=== PATIENT | male | born 1955 | race Caucasian/White ===

== ENCOUNTER → 2019-12-21 09:56 | Outpatient (BNVA) | payer SELFPAY | PROVIDERS: Visit Provider Internal Medicine Gastroenterology | DX: K50.90 Crohn's disease, unspecified, without complications (principal) | CPT/HCPCS: 99212 ==

== ENCOUNTER → 2020-05-02 10:13 | Outpatient (BNVA) | payer BC, SELFPAY | PROVIDERS: PCP Internal Medicine; Referring Provider Internal Medicine; Visit Provider Internal Medicine Gastroenterology ==

== ENCOUNTER 2020-05-06 11:11 | Outpatient (REF) | payer BC, SELFPAY ==
[2020-05-12 17:02] LABS: Calprotectin, Fecal 48 mcg/g
== END 2020-05-06 11:12 | disposition home or self-care (01) ==
LOC: HO.LNP 11:11
PROVIDERS: Visit Provider Internal Medicine Gastroenterology
DX: K50.90 Crohn's disease, unspecified, without complications (principal)
CPT/HCPCS: 83993

== ENCOUNTER 2020-08-01 08:17 | Outpatient (REF) | payer BC, SELFPAY ==
[2020-08-10 16:46] LABS: Calprotectin, Fecal 132 mcg/g
== END 2020-08-01 08:18 | disposition home or self-care (01) ==
LOC: HO.LNP 08:17
PROVIDERS: PCP Internal Medicine; Referring Provider Internal Medicine; Visit Provider Internal Medicine Gastroenterology
DX: K50.90 Crohn's disease, unspecified, without complications (principal)
CPT/HCPCS: 83993

== ENCOUNTER 2020-08-29 11:12 | Outpatient (REF) | payer BC, SELFPAY ==
[2020-08-29 11:37] LABS: MANUAL DIFF FLAG NO
[2020-08-29 11:41] LABS: Basophils Absolute Auto 0.1 X10*3/uL (0.0-0.2); Basophils Percent Auto 0.8 % (0-2); Eosinophils Absolute Auto 0.3 X10*3/uL (0.0-0.4); Eosinophils Percent Auto 4.6 % (0-4); Hematocrit 41.1 % (42-52); Hemoglobin 13.9 g/dl (14.0-18.0); Imm Gran Abs Auto 0.03 X10*3/uL (0.00-0.03); Imm Gran Pct Auto 0.4 % (0.0-0.4); Lymphocytes Absolute Auto 1.8 X10*3/uL (1.2-4.9); Lymphocytes Percent Auto 25.1 % (20-40); Mean Corpuscular HGB Conc 33.8 g/dl (31.0-36.0); Mean Corpuscular Hemoglobin 29.6 pg (27.0-33.0); Mean Corpuscular Volume 87.4 fL (80-98); Mean Platelet Volume 8.3 fL (9.4-12.4); Monocytes Absolute Auto 0.6 X10*3/uL (0.1-1.2); Neutrophils Absolute Auto 4.4 X10*3/uL (2.0-8.3); Neutrophils Percent Auto 61.1 % (45-73); Platelet Count 207 X10*3/uL (160-400); Red Cell Distribution Width 12.7 % (11.0-16.0); White Blood Count 7.2 X10*3/uL (4.8-10.8)
[2020-08-29 12:04] LABS: C Reactive Protein 0.15 mg/dL (< or = 0.50)
[2020-08-29 12:08] LABS: Alanine Aminotransferase 25 U/L (0-40); Albumin Level 4.2 g/dL (3.5-5.0); Alkaline Phosphatase 87 U/L (39-117); Anion Gap 11 (12-20); Aspartate Amino Transferase 20 U/L (5-37); Bilirubin Total 1.9 mg/dL (0.0-1.0); Blood Urea Nitrogen 13 mg/dL (9-16); Calcium 8.8 mg/dL (8.4-10.2); Carbon Dioxide 25 mmol/L (22-29); Chloride 106 mmol/L (96-108); Estimated Glomerular Filt Rate > 60; Glucose Random 99 mg/dL (60-115); Potassium 3.8 mmol/L (3.3-5.1); Sodium 138 mmol/L (135-145); Total Protein 6.8 g/dL (6.5-8.0)
== END 2020-08-29 11:13 | disposition home or self-care (01) ==
LOC: HO.MDS 11:12
PROVIDERS: PCP Internal Medicine; Visit Provider Internal Medicine Gastroenterology
DX: K50.90 Crohn's disease, unspecified, without complications (principal)
CPT/HCPCS: 36415; 80053; 85025; 86140; 96365; J3358

== ENCOUNTER → 2020-10-22 09:46 | Outpatient (BNVA) | payer BC, SELFPAY | PROVIDERS: PCP Internal Medicine; Visit Provider Internal Medicine Gastroenterology ==

== ENCOUNTER → 2021-02-03 09:10 | Outpatient (BNVA) | payer OTHER, SELFPAY | PROVIDERS: PCP Internal Medicine; Visit Provider Internal Medicine Gastroenterology ==

== ENCOUNTER 2021-02-05 12:57 | Outpatient (REF) | payer OTHER, SELFPAY ==
[2021-02-10 03:27] LABS: Calprotectin, Fecal 114 mcg/g
== END 2021-02-05 12:58 | disposition home or self-care (01) ==
LOC: HO.LNP 12:57
PROVIDERS: Visit Provider Internal Medicine Gastroenterology
DX: K50.90 Crohn's disease, unspecified, without complications (principal)
CPT/HCPCS: 83993

== ENCOUNTER 2021-04-17 09:57 | Outpatient (REF) | payer OTHER, SELFPAY ==
[2021-04-17 11:23] LABS: MANUAL DIFF FLAG NO
[2021-04-17 11:27] LABS: Basophils Absolute Auto 0.1 X10*3/uL (0.0-0.2); Basophils Percent Auto 0.8 % (0-2); Eosinophils Absolute Auto 0.3 X10*3/uL (0.0-0.4); Hematocrit 43.2 % (42.0-52.0); Hemoglobin 14.7 g/dl (14.0-18.0); Imm Gran Abs Auto 0.02 X10*3/uL (0.00-0.03); Imm Gran Pct Auto 0.3 % (0.0-0.4); Lymphocytes Absolute Auto 1.4 X10*3/uL (1.2-4.9); Lymphocytes Percent Auto 21.7 % (20-40); Mean Corpuscular Hemoglobin 29.2 pg (27.0-33.0); Mean Corpuscular Volume 85.9 fL (80.0-98.0); Monocytes Absolute Auto 0.4 X10*3/uL (0.1-1.2); Monocytes Percent Auto 6.7 % (2-11); Neutrophils Absolute Auto 4.3 x10*3/uL (2.0-8.3); Neutrophils Percent Auto 65.5 % (45-73); Platelet Count 216 X10*3/uL (160-400); Red Blood Count 5.03 X10*6/uL (4.60-5.80); Red Cell Distribution Width 12.8 % (11.0-16.0); White Blood Count 6.6 X10*3/uL (4.8-10.8)
[2021-04-17 11:57] LABS: Alanine Aminotransferase 32 U/L (0-40); Albumin Level 4.2 g/dL (3.5-5.0); Alkaline Phosphatase 97 U/L (39-117); Anion Gap 9 (12-20); Aspartate Amino Transferase 24 U/L (5-37); Bilirubin Total 1.9 mg/dL (0.0-1.0); Blood Urea Nitrogen 11 mg/dL (9-16); C Reactive Protein 0.42 mg/dL (< or = 0.50); Calcium 9.6 mg/dL (8.4-10.2); Carbon Dioxide 28 mmol/L (22-29); Chloride 107 mmol/L (96-108); Estimated Glomerular Filt Rate > 60; Glucose Random 98 mg/dL (60-115); Potassium 4.3 mmol/L (3.3-5.1); Sodium 140 mmol/L (135-145); Total Protein 7.5 g/dL (6.5-8.0)
[2021-04-17 12:05] LABS: Erythrocyte Sedimentation Rate 6 MM/HR (0-15)
[2021-04-17 12:15] LABS: Ferritin 59 ng/mL (20-250)
[2021-04-17 12:36] LABS: Folate 10.2 ng/mL (> or = 4.0); Vitamin B12 486 pg/mL (200-900)
[2021-04-22 06:07] LABS: Zinc 72 mcg/dL (60-130)
[2021-04-22 20:46] LABS: Vitamin A 38 mcg/dL (38-98)
[2021-04-24 11:36] LABS: Calprotectin, Fecal 280 mcg/g
== END 2021-04-17 09:58 | disposition home or self-care (01) ==
LOC: HO.LAB 09:57
PROVIDERS: PCP Internal Medicine; Referring Provider Internal Medicine; Visit Provider Internal Medicine Gastroenterology
DX: K50.90 Crohn's disease, unspecified, without complications (principal); K75.81 Nonalcoholic steatohepatitis (NASH)
CPT/HCPCS: 36415; 80053; 82607; 82728; 82746; 83993; 84590; 84630; 85025; 85652; 86140

== ENCOUNTER 2021-12-07 09:46 | Outpatient (REF) | payer OTHER, SELFPAY ==
[2021-12-15 15:08] LABS: Lactoferrin, Fecal, Quant. 6.42 mcg/mL (<7.25)
== END 2021-12-07 09:47 | disposition home or self-care (01) ==
LOC: HO.LNP 09:46
PROVIDERS: Visit Provider Internal Medicine Gastroenterology
DX: K50.90 Crohn's disease, unspecified, without complications (principal)
CPT/HCPCS: 83631

== ENCOUNTER 2022-01-13 17:05 | Emergency (ER) | payer OTHER, SELFPAY | END 2022-01-13 19:38 | disposition left against medical advice (07) | PROVIDERS: Emergency Provider Emergency Medicine | DX: K50.90 Crohn's disease, unspecified, without complications (principal) ==

== ENCOUNTER 2022-02-24 11:23 | Outpatient (REF) | payer OTHER, SELFPAY ==
[2022-02-27 08:28] LABS: TS Negative Control Passed; TS Panel A 0; TS Panel B 0; TS Positive Control Passed; TSpotTB Negative (Negative)
== END 2022-02-24 11:24 | disposition home or self-care (01) ==
LOC: HO.HMGCLDS 11:23
PROVIDERS: PCP Internal Medicine; Visit Provider Internal Medicine Gastroenterology
DX: K50.90 Crohn's disease, unspecified, without complications (principal)
CPT/HCPCS: 36415; 86481

== ENCOUNTER 2022-07-19 09:45 | Outpatient (REF) | payer BC, SELFPAY ==
[2022-07-19 10:37] LABS: MANUAL DIFF FLAG NO
[2022-07-19 10:42] LABS: Basophils Absolute Auto 0.1 X10*3/uL (0.0-0.2); Basophils Percent Auto 0.8 % (0-2); Eosinophils Absolute Auto 0.2 X10*3/uL (0.0-0.4); Eosinophils Percent Auto 2.9 % (0-4); Hemoglobin 14.7 g/dl (14.0-18.0); Imm Gran Abs Auto 0.04 X10*3/uL (0.00-0.03); Imm Gran Pct Auto 0.5 % (0.0-0.4); Lymphocytes Absolute Auto 1.4 X10*3/uL (1.2-4.9); Lymphocytes Percent Auto 18.9 % (20-40); Mean Corpuscular Hemoglobin 29.8 pg (27.0-33.0); Mean Corpuscular Volume 85.2 fL (80.0-98.0); Mean Platelet Volume 8.7 fL (9.4-12.4); Monocytes Absolute Auto 0.6 X10*3/uL (0.1-1.2); Monocytes Percent Auto 7.3 % (2-11); Neutrophils Absolute Auto 5.3 x10*3/uL (2.0-8.3); Neutrophils Percent Auto 69.6 % (45-73); Platelet Count 214 X10*3/uL (160-400); Red Blood Count 4.93 X10*6/uL (4.60-5.80); Red Cell Distribution Width 13.2 % (11.0-16.0); White Blood Count 7.6 X10*3/uL (4.8-10.8)
[2022-07-19 11:43] LABS: Alanine Aminotransferase 34 U/L (0-40); Alkaline Phosphatase 90 U/L (39-117); Anion Gap 11 (12-20); Aspartate Amino Transferase 30 U/L (5-37); Bilirubin Total 3.1 mg/dL (0.0-1.0); Blood Urea Nitrogen 12 mg/dL (9-16); C Reactive Protein 0.41 mg/dL (< or = 0.50); Calcium 9.1 mg/dL (8.4-10.2); Carbon Dioxide 24 mmol/L (22-29); Chloride 106 mmol/L (96-108); Estimated Glomerular Filt Rate > 60; Glucose Random 95 mg/dL (60-115); Sodium 137 mmol/L (135-145); Total Protein 6.8 g/dL (6.5-8.0)
== END 2022-07-19 09:46 | disposition home or self-care (01) ==
LOC: HO.MDS 09:45
PROVIDERS: Visit Provider Internal Medicine Gastroenterology
DX: K50.90 Crohn's disease, unspecified, without complications (principal)
CPT/HCPCS: 36415; 80053; 85025; 86140; J3358

== ENCOUNTER 2022-07-29 10:11 | Outpatient (REF) | payer BC, SELFPAY | END 2022-07-29 10:12 | disposition home or self-care (01) | LOC: HO.MDS 10:11 | PROVIDERS: Visit Provider Internal Medicine Gastroenterology | DX: K50.90 Crohn's disease, unspecified, without complications (principal) | CPT/HCPCS: 96365; J3358 ==

== ENCOUNTER 2022-10-04 09:52 | Outpatient (AMB) | payer BC, SELFPAY ==
--- NOTE | 2022-10-04 09:56 | MHC.OFFVIS ---
Intake Vital Signs 10/04/22 09:58 Height 5 ft 6 in Weight 194 lb 0.108 oz BMI 31.3 BP 114/69 Blood Pressure Location Lt brachial Position Sitting Pulse 78 Intake Visit Reasons: 6 Month FU Intake Note: Bello presents in the office as a 6 month follow up. CC: Little tingling in the legs but he states that he feels pretty good. That is just due to arthritis. Allergies Seasonal Allergies Allergy (Mild, Verified 10/04/22 09:58) runny nose HPI 6 Month FU HPI Details RECAP: ? 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 I also dx him with based on exam findings and XR. ? He did have sx of diarrhea, and rheum started him on humira which worked great ?spine had been getting worse and rheum had talked of stopping or changing humira ? insurance refused leonel eventually got simponi and it helped his joints a lot his rheum has been trying to get stelara but refused by insurance I ordered stelara for him to see if helps joints and abdominal sx ? ? ? Tests; ? EGD/colonoscopy- focal colitis, grade D esophagitis ? MRe 07/2017- normal ? fecal calprotectin- neg. ? repeat fecal calprotectin 10/2018- 168, repeat; 132 (04/2019) ? rechecked 03/2019--136 rechecked 04/2020--fecal raman was normal (had been advised to stop NSAID before then), rept calprotectin: 132 ? ada level-10/2018-8, no ab in blood ? crp 10/2018 neg ? mild bili elevation prob gilberts ? MRe; 10/2018--no inflammation noted in GI tract, no fistula ? VCE: 12/27/18--normal, no erosions, normal stomach and small bowel mucosa calprotectin 280 ----03/2021 fecal lactoferrin from 12/10 was negative ? INTERIM: he is back on sterala after insurance issues no blood in stools no nausea or vomiting appetite is fair no abdominal pain he feesl it is helping his joints a swell EXAM: GENERAL: The patient is well developed and nontoxic. VITAL SIGNS:see workflow HEENT: Nonicteric sclerae, PERRLA, EOMI. Oropharynx clear. Moist mucous membranes. Conjunctivae appear well perfused. No thyroid mass. CHEST: Chest wall is nontender. HEART: Regular rate and rhythm without murmurs. LUNGS: Clear to auscultation bilaterally. ABDOMEN: Soft, positive bowel sounds, nontender, no organomegaly.no flank tenderness SKIN: No rash, no excessive bruising, petechiae, or purpura. NEUROLOGIC: Cranial nerves II-XII intact without motor/sensory deficit. MS:? loss of lumbar lordosis ? 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 Cont with stellara, 2/ egd and colonoscopy for reassessment and surveillance but he wants to hold off till after next visit 3/ reminded on taking MV and Vit D supplement PFSH Surgical History History of esophagogastroduodenoscopy (EGD) Hx of colonoscopy (~2017) Hx of hernia repair Family History Mother Dementia Father Cancer Brother Heart attack Social History Household Members: Spouse Alcohol intake: never Physical Exam Vital Signs: Last Vital Signs Pulse 78 10/04/22 09:58 BP 114/69 10/04/22 09:58 BMI result Body Mass Index 31.3 Assessment & Plan Assessment & Plan (1) Crohn's disease: Code(s): K50.90 - Crohn's disease, unspecified, without complications (2) Ankylosing spondylitis: Code(s): M45.9 - Ankylosing spondylitis of unspecified sites in spine (3) [place] disease: Code(s): 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
[2022-10-04 09:58] VITALS: BP 114/69; PULSE 78; BMI 31.3
== END 2022-10-04 10:36 | disposition home or self-care (01) ==
PROVIDERS: PCP Internal Medicine; Visit Provider Internal Medicine Gastroenterology
DX: K50.90 Crohn's disease, unspecified, without complications (principal); M45.9 Ankylosing spondylitis of unspecified sites in spine; E80.4 Gilbert syndrome
CPT/HCPCS: 99213

== ENCOUNTER → 2022-10-04 09:52 | Outpatient (BNVA) | payer BC, SELFPAY | PROVIDERS: PCP Internal Medicine; Visit Provider Internal Medicine Gastroenterology ==

== ENCOUNTER 2023-06-20 10:43 | Outpatient (AMB) | payer BC, SELFPAY ==
--- NOTE | 2023-06-20 10:52 | MHC.OFFVIS ---
Intake Vital Signs 06/20/23 10:55 Height 5 ft 6 in Weight 196 lb BMI 31.6 BP 121/70 Blood Pressure Location Lt brachial Position Sitting Pulse 69 Intake Visit Reasons: 6 month follow up Intake Note: Bello presents in the office as a 6 month follow up. CC: a month ago he had a week flare up and was out of work for a month. diarrhea, constipation, pains in the stomach. 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 I also dx him with based on exam findings and XR. He did have sx of diarrhea, and rheum started him on humira which worked great spine had been getting worse and rheum had talked of stopping or changing humira insurance refused stelara eventually got simponi and it helped his joints a lot his rheum has been trying to get stelara but refused by insurance I ordered stelara for him to see if helps joints and abdominal sx Tests; EGD/colonoscopy- focal colitis, grade D esophagitis MRe 07/2017- normal fecal calprotectin- neg. repeat fecal calprotectin 10/2018- 168, repeat; 132 (04/2019) rechecked 03/2019--136 rechecked 04/2020--fecal raman was normal (had been advised to stop NSAID before then), rept calprotectin: 132 ada level-10/2018-8, no ab in blood crp 10/2018 neg mild bili elevation prob roger MRe; 10/2018--no inflammation noted in GI tract, no fistula VCE: 12/27/18--normal, no erosions, normal stomach and small bowel mucosa calprotectin 280 ----03/2021 fecal lactoferrin from 12/10 was negative INTERIM: he had an isolated flare in March and also had similar symptoms, lasted 1 week, now normal no abdominal pain now bowel habit normal no blood in stools no nausea or vomiting appetite is fair he is happy with stelara joints are still sore, but not as swollen EXAM: GENERAL: The patient is well developed and nontoxic. VITAL SIGNS:see workflow HEENT: Nonicteric sclerae, PERRLA, EOMI. Oropharynx clear. Moist mucous membranes. Conjunctivae appear well perfused. No thyroid mass. CHEST: Chest wall is nontender. HEART: Regular rate and rhythm without murmurs. LUNGS: Clear to auscultation bilaterally. ABDOMEN: Soft, positive bowel sounds, nontender, no organomegaly.no flank tenderness SKIN: No rash, no excessive bruising, petechiae, or purpura. NEUROLOGIC: Cranial nerves II-XII intact without motor/sensory deficit. MS: loss of lumbar lordosis Assessment & Plan (1) Crohn's disease--on stelara, flare seems to have been viral in nature, resolved 2/ Hx of esophagitis -no sx now PLAN: 1/ Cont with stellara, 2/ egd and colonoscopy for reassessment and surveillance 3/ cont taking MV and Vit D supplement PFSH Surgical History History of esophagogastroduodenoscopy (EGD) Hx of hernia repair Hx of colonoscopy (~2016) Family History Mother Dementia Father Cancer Brother Heart attack Social History Household Members: Spouse Alcohol intake: never Physical Exam Vital Signs: Last Vital Signs Pulse 69 06/20/23 10:55 BP 121/70 06/20/23 10:55 BMI result Body Mass Index 31.6 Assessment & Plan Assessment & Plan (1) Crohn's disease: Code(s): K50.90 - Crohn's disease, unspecified, without complications Plan: PLAN: 1/ Cont with stellara, 2/ egd and colonoscopy for reassessment and surveillance 3/ cont taking MV and Vit D supplement Medications: New sodium,potassium,mag sulfates 17.5-3.13-1.6 gram (Suprep Bowel Prep Kit) DILUTE; drink 1/2 at 6-8 pm and half at 11 PM- 1AM 354 mL 0RF Coding Level of Care Code Est Pt Level 3 (63131) Diagnoses Crohn's disease K50.90
[2023-06-20 10:55] VITALS: BP 121/70; PULSE 69; BMI 31.6
== END 2023-06-20 11:41 | disposition home or self-care (01) ==
PROVIDERS: PCP Internal Medicine; Visit Provider Internal Medicine Gastroenterology
DX: K50.90 Crohn's disease, unspecified, without complications (principal)
CPT/HCPCS: 99213

== ENCOUNTER → 2023-06-20 10:43 | Outpatient (BNVA) | payer BC, SELFPAY | PROVIDERS: PCP Internal Medicine; Visit Provider Internal Medicine Gastroenterology ==

== ENCOUNTER 2024-02-06 11:58 | Outpatient (AMB) | payer BC, SELFPAY ==
--- NOTE | 2024-02-06 12:03 | MHC.OFFVIS ---
Vital Signs 02/06/24 12:08 Height 5 ft 6 in Weight 190 lb BMI 30.7 BP 142/67 H Blood Pressure Location Lt brachial Position Sitting Pulse 87 Intake Visit Reasons: 6 month f/u Intake Note: Patient 6 month follow up for Crohns disease. Patient denies any issues for today. 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 I also dx him with based on exam findings and XR. He did have sx of diarrhea, and rheum started him on humira which worked great spine had been getting worse and rheum had talked of stopping or changing humira insurance refused stelara eventually got simponi and it helped his joints a lot his rheum has been trying to get stelara but refused by insurance I ordered stelara for him to see if helps joints and abdominal sx Tests; EGD/colonoscopy- focal colitis, grade D esophagitis MRe 07/2017- normal fecal calprotectin- neg. repeat fecal calprotectin 10/2018- 168, repeat; 132 (04/2019) rechecked 03/2019--136 rechecked 04/2020--fecal raman was normal (had been advised to stop NSAID before then), rept calprotectin: 132 ada level-10/2018-8, no ab in blood crp 10/2018 neg mild bili elevation prob roger MRe; 10/2018--no inflammation noted in GI tract, no fistula VCE: 12/27/18--normal, no erosions, normal stomach and small bowel mucosa calprotectin 280 ----03/2021 fecal lactoferrin from 12/10 was negative INTERIM: he feesl stelera doesn't last the full 8 weeks no blood in stools no nausea or vomiting appetite is fair joints are still acting out needs disability placard paperwork EXAM: GENERAL: The patient is well developed and nontoxic, stiffness VITAL SIGNS:see workflow HEENT: Nonicteric sclerae, PERRLA, EOMI. Oropharynx clear. Moist mucous membranes. Conjunctivae appear well perfused. No thyroid mass. CHEST: Chest wall is nontender. HEART: Regular rate and rhythm without murmurs. LUNGS: Clear to auscultation bilaterally. ABDOMEN: Soft, positive bowel sounds, nontender, no organomegaly.no flank tenderness SKIN: No rash, no excessive bruising, petechiae, or purpura. NEUROLOGIC: Cranial nerves II-XII intact without motor/sensory deficit. MS: loss of lumbar lordosis Assessment & Plan (1) Crohn's disease--on stelara, effects runs out by week 8 PLAN: 1/ Cont with stellara, but change to 6 weekly 2/ egd and colonoscopy for reassessment and surveillance after being on new doing freq of stellara for at least 3-6 months 3/ cont taking MV and Vit D supplement 4/ filled in disability [employer] paperwork for him [facility] Surgical History History of esophagogastroduodenoscopy (EGD) Hx of hernia repair Hx of colonoscopy (~2016) Family History Mother Dementia Father Cancer Brother Heart attack Social History Household Members: Spouse Alcohol intake: never Physical Exam Vital Signs: Last Vital Signs Pulse 87 02/06/24 12:08 BP 142/67 H 02/06/24 12:08 BMI result Body Mass Index 30.7 Assessment & Plan Assessment & Plan (1) Crohn's disease: Code(s): K50.90 - Crohn's disease, unspecified, without complications Category: Medical Plan: see above Coding Level of Care Code Est Pt Level 3 (39695) Diagnoses Crohn's disease K50.90
[2024-02-06 12:08] VITALS: BP 142/67; PULSE 87; BMI 30.7
== END 2024-02-06 12:50 | disposition home or self-care (01) ==
PROVIDERS: PCP Internal Medicine; Visit Provider Internal Medicine Gastroenterology
DX: K50.90 Crohn's disease, unspecified, without complications (principal)
CPT/HCPCS: 99213

== ENCOUNTER → 2024-02-06 11:58 | Outpatient (BNVA) | payer BC, SELFPAY | PROVIDERS: PCP Internal Medicine; Visit Provider Internal Medicine Gastroenterology ==

== ENCOUNTER 2024-02-13 07:39 | Outpatient (REF) | payer BC, SELFPAY | END 2024-02-13 07:40 | disposition home or self-care (01) | LOC: HO.LAB 07:39 | PROVIDERS: Visit Provider Internal Medicine Gastroenterology | DX: K50.90 Crohn's disease, unspecified, without complications (principal); M45.9 Ankylosing spondylitis of unspecified sites in spine | CPT/HCPCS: 36415; 80299; 82542 ==

== ENCOUNTER 2024-03-12 07:15 | Outpatient (REF) | payer BC, SELFPAY | END 2024-03-12 07:16 | disposition home or self-care (01) | LOC: HO.LAB 07:15 | PROVIDERS: PCP Internal Medicine; Visit Provider Internal Medicine Gastroenterology | DX: K50.90 Crohn's disease, unspecified, without complications (principal); M45.9 Ankylosing spondylitis of unspecified sites in spine; E80.4 Gilbert syndrome | CPT/HCPCS: 36415; 80299; 82542 ==

== ENCOUNTER 2024-08-27 12:21 | Outpatient (REF) | payer BC, SELFPAY ==
[2024-08-27 13:08] LABS: MANUAL DIFF FLAG NO
[2024-08-27 13:48] LABS: Basophils Absolute Auto 0.1 X10*3/uL (0.0-0.2); Basophils Percent Auto 0.7 % (0-2); Eosinophils Absolute Auto 0.2 X10*3/uL (0.0-0.4); Eosinophils Percent Auto 2.7 % (0-4); Hematocrit 42.4 % (42.0-52.0); Hemoglobin 14.4 g/dl (14.0-18.0); Imm Gran Abs Auto 0.02 X10*3/uL (0.00-0.03); Imm Gran Pct Auto 0.3 % (0.0-0.4); Lymphocytes Absolute Auto 1.4 X10*3/uL (1.2-4.9); Lymphocytes Percent Auto 20.1 % (20-40); Mean Corpuscular Hemoglobin 29.1 pg (27.0-33.0); Mean Corpuscular Volume 85.8 fL (80.0-98.0); Mean Platelet Volume 9.2 fL (9.4-12.4); Monocytes Absolute Auto 0.5 X10*3/uL (0.1-1.2); Monocytes Percent Auto 6.6 % (2-11); Neutrophils Absolute Auto 4.9 x10*3/uL (2.0-8.3); Neutrophils Percent Auto 69.6 % (45-73); Platelet Count 213 X10*3/uL (160-400); Red Blood Count 4.94 X10*6/uL (4.60-5.80); White Blood Count 7.1 X10*3/uL (4.8-10.8)
[2024-08-27 14:23] LABS: Alanine Aminotransferase 27 U/L (0-40); Albumin Level 4.5 g/dL (3.5-5.0); Alkaline Phosphatase 77 U/L (39-117); Anion Gap 11 (12-20); Aspartate Amino Transferase 28 U/L (5-37); Bilirubin Total 2.9 mg/dL (0.0-1.0); Blood Urea Nitrogen 14 mg/dL (9-16); Carbon Dioxide 25 mmol/L (22-29); Chloride 107 mmol/L (96-108); Estimated Glomerular Filt Rate > 60; Glucose Random 94 mg/dL (60-115); Potassium 4.1 mmol/L (3.3-5.1); Sodium 139 mmol/L (135-145); Total Protein 7.3 g/dL (6.5-8.0)
[2024-08-27 14:39] LABS: Ferritin 34 ng/mL (20-250)
== END 2024-08-27 12:22 | disposition home or self-care (01) ==
LOC: HO.LAB 12:21
PROVIDERS: PCP Internal Medicine; Visit Provider Internal Medicine Gastroenterology
DX: K75.81 Nonalcoholic steatohepatitis (NASH) (principal); K50.90 Crohn's disease, unspecified, without complications; M45.9 Ankylosing spondylitis of unspecified sites in spine
CPT/HCPCS: 36415; 80053; 82728; 85025; 86140

== ENCOUNTER 2024-08-27 12:21 | Outpatient (AMB) | payer BC, SELFPAY ==
--- NOTE | 2024-08-27 12:34 | A.OFFVIS_ITS ---
Vital Signs 08/27/24 12:35 Height 56 ft Weight 193 lb BMI 0.3 BP 124/79 Blood Pressure Location Lt brachial Position Sitting Pulse 72 Pulse Oximetry (%) 97 Oxygen Delivery Method Room Air Intake Visit Reasons: 4 month f/u Intake Note: Patient 4 month follow up for Crohns disease. Patient cc: abdominal pain with bloating, also diarrhea on and off. Gama any other GI issues. 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 I also dx him with based on exam findings and XR. He did have sx of diarrhea, and rheum started him on humira which worked great spine had been getting worse and rheum had talked of stopping or changing humira insurance refused stelara eventually got simponi and it helped his joints a lot his rheum has been trying to get stelara but refused by insurance I ordered stelara for him to see if helps joints and abdominal sx Tests; EGD/colonoscopy- focal colitis, grade D esophagitis MRe 07/2017- normal fecal calprotectin- neg. repeat fecal calprotectin 10/2018- 168, repeat; 132 (04/2019) rechecked 03/2019--136 rechecked 04/2020--fecal raman was normal (had been advised to stop NSAID before then), rept calprotectin: 132 ada level-10/2018-8, no ab in blood crp 10/2018 neg mild bili elevation prob roger MRe; 10/2018--no inflammation noted in GI tract, no fistula VCE: 12/27/18--normal, no erosions, normal stomach and small bowel mucosa calprotectin 280 ----03/2021 fecal lactoferrin from 12/10 was negative INTERIM: He is still seeing rheum, and might get MTX rx he feels the inclement wether this spring has not helped his joints and stomach he has occ cramps and running to bathroom for stooling--most days stool is formed, sometimes it is liquid, no blood but only happened 3 times this month, variable severity EXAM: GENERAL: The patient is well developed and nontoxic, stiffness VITAL SIGNS:see workflow HEENT: Nonicteric sclerae, PERRLA, EOMI. Oropharynx clear. Moist mucous membranes. Conjunctivae appear well perfused. No thyroid mass. CHEST: Chest wall is nontender. HEART: Regular rate and rhythm without murmurs. LUNGS: Clear to auscultation bilaterally. ABDOMEN: Soft, positive bowel sounds, nontender, no organomegaly.no flank tenderness SKIN: No rash, no excessive bruising, petechiae, or purpura. NEUROLOGIC: Cranial nerves II-XII intact without motor/sensory deficit. MS: loss of lumbar lordosis Assessment & Plan (1) Crohn's disease--on stelara, cont q6 weeks PLAN: 1/ Cont with stellara, 2/ egd and colonoscopy for reassessment and surveillance--get CTe first 3/ cont taking MV and Vit D supplement 4/ check labs incl fecal lactoferrin, crp PFSH Surgical History History of esophagogastroduodenoscopy (EGD) Hx of hernia repair Hx of colonoscopy (~2016) Family History Mother Dementia Father Cancer Brother Heart attack Social History Household Members: Spouse Alcohol intake: never Physical Exam Vital Signs: Last Vital Signs Pulse 72 08/27/24 12:35 BP 124/79 08/27/24 12:35 Pulse Ox 97 08/27/24 12:35 Oxygen Delivery Method Room Air 08/27/24 12:35 BMI result Body Mass Index 0.3 Assessment & Plan Assessment & Plan (1) Crohn's disease: Code(s): K50.90 - Crohn's disease, unspecified, without complications Category: Medical Plan: as above (2) Ankylosing spondylitis: Code(s): M45.9 - Ankylosing spondylitis of unspecified sites in spine Category: Medical Plan: as above Orders: Orders CDiff Gene PCR Today K50.90 - Crohn's disease, unspecified, without complications, M45.9 - Ankylosing spondylitis of unspecified sites in spine, R19.7 - Diarrhea, unspecified Complete Blood Count Auto Diff 08/27/24 K50.90 - Crohn's disease, unspecified, without complications, M45.9 - Ankylosing spondylitis of unspecified sites in spine CT enterography 08/27/24 K50.90 - Crohn's disease, unspecified, without complications, M45.9 - Ankylosing spondylitis of unspecified sites in spine Lactoferrin, Fecal, Quant. Today K50.90 - Crohn's disease, unspecified, without complications, K51.50 - Left sided colitis without complications, M45.9 - Ank ylosing spondylitis of unspecified sites in spine Comprehensive Met. Panel 08/27/24 K50.90 - Crohn's disease, unspecified, without complications, K75.81 - Nonalcoholic steatohepatitis (CINTRON), M45.9 - Ankylosing spondylitis of unspecified sites in spine C Reactive Protein 08/27/24 K50.90 - Crohn's disease, unspecified, without complications, M45.9 - Ankylosing spondylitis of unspecified sites in spine Ferritin 08/27/24 K50.90 - Crohn's disease, unspecified, without complications, M45.9 - Ankylosing spondylitis of unspecified sites in spine Coding Level of Care Code Est Pt Level 4 (36503) Diagnoses Crohn's disease K50.90 Ankylosing spondylitis M45.9
[2024-08-27 12:35] VITALS: BP 124/79; PULSE 72; O2SAT 97
--- OUTSIDE RECORDS SUMMARY | 2024-08-27 14:00 | XMS_ITS | Encounter Summary ---
Author Organization [facility] Address [address] [place] [address] Care Team Providers Care Assembly Cleaner Name Role Phone Robert Peck MD Primary Care Provider [phone] Encounter Details Date Type Department Care Team (Late Contact Info) Description 04/04/[address] [facility] - Main Lab [address] [facility] [place] [phone] Camron Bowen MD [address] [facility] [address] [place] [phone] Benign prostatic hyperplasia with lower urinary tract symptoms Social History Tobacco Use Types Packs/Day Years Used Date Smoking Tobacco: Never Assessed Sex and Gender Information Value Date Recorded Sex Assigned at Not on file Legal Sex Male 5:13 PM EST Gender Identity Not on file Sexual Orientation Not on file documented as of this encounter Plan of Treatment Upcoming Encounters Date Type Department Care Team (Late Contact Info) Description 10/23/2024 9:15 AM EDT Office Visit Orthopedic Surgery - [place] [address] [phone] Migue Kamara, DPM [address] [address] documented as of this encounter Procedures Procedure Name Priority Date/Time Associated Diagnosis Comments PROSTATE SPECIFIC ANTIGEN DIAGNOSTIC Routine 04/04/2024 11:44 AM EST Benign prostatic hyperplasia with lower urinary tract symptoms documented in this encounter Results * Prostate specific antigen diagnostic (04/04/2024 11:44 AM EST) PSA 3.72 0.00 - 4.00 ng/mL LAB CHEMISTRY METHOD 04/04/2024 10:33 PM EST [facility] Blood Venous blood specimen / Unknown 04/04/2024 11:44 AM EST 04/04/2024 5:45 PM EST Narrative [facility] - 04/04/2024 10:33 PM EST The Siemens Advia Centaur Chemiluminescent Immunoassay is used. Results obtained with different assay methods or kits cannot be used interchangeably. Results cannot be interpreted as absolute evidence of the presence or absence of malignant disease. us Camron Bowen MD LAB BLOOD ORDERABLES Final Resul t [facility] [address] [place] [address], documented in this encounter Visit Diagnoses Diagnosis Benign prostatic hyperplasia with lower urinary tract symptoms documented in this encounter Care Teams Assembly Cleaner Relationship Specialty Start Date End Date Robert Peck MD [address] [place] [address] PCP - General Internal Medicine 12/19/23 documented as of this encounter
== END 2024-08-27 12:53 | disposition home or self-care (01) ==
LOC: HO.HGI 12:21
PROVIDERS: PCP Internal Medicine; Visit Provider Internal Medicine Gastroenterology
DX: K50.90 Crohn's disease, unspecified, without complications (principal); M45.9 Ankylosing spondylitis of unspecified sites in spine
CPT/HCPCS: 99214

== ENCOUNTER 2024-08-28 12:26 | Outpatient (REF) | payer BC, SELFPAY ==
[2024-08-28 13:18] LABS: CDiff Gene PCR NEGATIVE (Negative)
--- OUTSIDE RECORDS SUMMARY | 2024-08-28 14:38 | XMS_ITS | Encounter Summary ---
Author Organization [facility] Address [address] [place] [address] Care Team Providers Care Electrical Manufacturing Engineer Name Role Phone Robert Peck MD Primary Care Provider [phone] Encounter Details Date Type Department Care Team (Late Contact Info) Description 04/04/2024 Lab Requisition [facility] - Main Lab [address] [facility] [place] [phone] Camron Bowen MD [address] [facility] [address] [place] [phone] Benign prostatic hyperplasia with lower urinary tract [...] AM EDT Office Visit Orthopedic Surgery - [place] [address] [phone] Migue Kamara, DPM [address] [address] documented as of this encounter Procedures Procedure Name Priority Date/Time Associated Diagnosis Comments PROSTATE SPECIFIC ANTIGEN DIAGNOSTIC Routine 04/04/2024 11:44 AM EST Benign prostatic hyperplasia with lower urinary tract symptoms documented in this encounter Results * Prostate specific antigen diagnostic (04/04/2024 11:44 AM EST) PSA 3.72 0.00 - 4.00 ng/mL LAB CHEMISTRY METHOD 04/04/2024 10:33 PM EST [facility] Blood Venous blood specimen / Unknown 04/04/2024 11:44 AM EST 04/04/2024 5:45 PM EST Narrative [facility] - 04/04/2024 10:33 PM EST The Siemens Advia Centaur Chemiluminescent Immunoassay is used. Results obtained with different assay methods or kits cannot be used interchangeably. Results cannot be interpreted as absolute evidence of the presence or absence of malignant disease. us Camron Bowen MD LAB BLOOD ORDERABLES Final Resul t [facility] [address] [place] [address], documented in this encounter Visit Diagnoses Diagnosis Benign prostatic hyperplasia with lower urinary tract symptoms documented in this encounter Care Teams Electrical Manufacturing Engineer Relationship Specialty Start Date End Date Robert Peck MD [address] [place] [address] PCP - General Internal Medicine 12/19/23 documented as of this encounter
[2024-09-05 15:33] LABS: Lactoferrin, Fecal, Quant. <6.25 mcg/mL (<7.25)
== END 2024-08-28 12:27 | disposition home or self-care (01) ==
LOC: HO.LNP 12:26
PROVIDERS: Visit Provider Internal Medicine Gastroenterology
DX: R19.7 Diarrhea, unspecified (principal); M45.9 Ankylosing spondylitis of unspecified sites in spine; K50.90 Crohn's disease, unspecified, without complications
CPT/HCPCS: 83631; 87493

== ENCOUNTER 2024-10-10 07:34 | Outpatient (REF) | payer BC, SELFPAY ==
--- NOTE | ~2024-10-10 | CT_ITS ---
CLINICAL HISTORY: K50.90 - Crohns disease, unspecified, without complications --- Additional Notes or Special Instructions: check for active inflammation CT abdomen and pelvis with contrast Comparison: None provided Findings: Lung bases are clear. No acute bony abnormalities. Moderate-sized hiatal hernia. Posteromedial right hepatic cyst incidentally noted. No significant abnormalities in liver or spleen. Pancreas and adrenal glands unremarkable. Gallbladder is within normal limits. No significant focal renal abnormalities. No renal stones or hydronephrosis. Abdominal aorta is normal in caliber. No free fluid or adenopathy in the pelvis. No diverticulitis. Appendix unremarkable. Impression: No acute process This document has been electronically signed by: Irving Christiansen MD on 10/10/2024 20:26:55
--- OUTSIDE RECORDS SUMMARY | 2024-10-10 07:36 | XMS_ITS | Encounter Summary ---
Author Organization [facility] Address [address] [place] [address] Care Team Providers Care Hypo Splasher Name Role Phone Robert Peck MD Primary Care Provider [phone] Encounter Details Date Type Department Care Team (Late Contact Info) Description 07/13/2024 Lab Requisition [facility] - Main Lab 299 [facility] [place] [phone] Robert Peck MD [address] [place] [address] Hyperlipidemia, unspecified; Postprocedural hypothyroidism; Essential (primary) hypertension; Mild intermittent asthma, uncomplicated; Unspecified osteoarthritis, unspecified site Social History Tobacco Use Types Packs/Day Years [...] AM EDT Office Visit Orthopedic Surgery - [place] [address] [phone] Migue Kamara, DPM [address] [address] documented as of this encounter Procedures Procedure Name Priority Date/Time Associated Diagnosis Comments CBC WITH AUTO DIFFERENTIAL Routine 07/13/2024 10:08 AM EDT Mild intermittent asthma, uncomplicated SEDIMENTATION RATE Routine 07/13/2024 10 :08 AM EDT Unspecified osteoarthritis, unspecified site CBC AND DIFFERENTIAL Routine 07/13/2024 10:08 AM EDT Mild intermittent asthma, uncomplicated THYROID STIMULATING HORMONE Routine 07/13/2024 10:08 AM EDT Postprocedural hypothyroidism LDL CHOLESTEROL, DIRECT Routine 07/13/2024 10:08 AM EDT Hyperlipidemia, unspecified COMPREHENSIVE METABOLIC PANEL Routine 07/13/2024 10:08 AM EDT Essential (primary) hypertension documented in this encounter Results * CBC auto differential (07/13/2024 10:08 AM EDT) [facility] [address] WBC 7.1 4.8 - 10.8 K/mcL LAB HEMETOLOGY METHOD 07/13/2024 11:27 AM [facility] RBC 4.90 4.50 - 5.50 M/mcL LAB HEMETOLOGY METHOD 07/13/2024 11:27 AM [facility] Hemoglobin 14.6 13.5 - 17.5 g/dL LAB HEMETOLOGY METHOD 07/13/2024 11:27 AM [facility] Hematocrit 42.4 42.0 - 54.0 % LAB HEMETOLOGY METHOD 07/13/2024 11:27 AM [facility] MCV 86.0 79.0 - 98.0 FL LAB HEMETOLOGY METHOD 07/13/2024 11:27 AM [facility] MCH 29.6 27.0 - 32.0 pcg LAB HEMETOLOGY METHOD 07/13/2024 11:27 AM [facility] MCHC 34.4 32.0 - 37.0 g/dL LAB HEMETOLOGY METHOD 07/13/2024 11:27 AM [facility] RDW 13.1 11.0 - 15.0 % LAB HEMETOLOGY METHOD 07/13/2024 11:27 AM [facility] Platelets 238 130 - 400 K/mcL LAB HEMETOLOGY METHOD 07/13/2024 11:27 AM [facility] MPV 9.2 7.0 - 11.0 FL LAB HEMETOLOGY METHOD 07/13/2024 11:27 AM [facility] NRBC 0.0 <1.0 % LAB HEMETOLOGY METHOD 07/13/2024 11:27 AM [facility] NRBC Absolute 0.00 <0.10 K/mcL LAB HEMETOLOGY METHOD 07/13/2024 11:27 AM [facility] Neutrophils Relative 66.0 % LAB HEMETOLOGY METHOD 07/13/2024 11:27 AM [facility] Lymphocytes Relative 21.7 % LAB HEMETOLOGY METHOD 07/13/2024 11:27 AM [facility] Monocytes Relative 8.1 % LAB HEMETOLOGY METHOD 07/13/2024 11:27 AM [facility] Eosinophils Relative 3.1 % LAB HEMETOLOGY METHOD 07/13/2024 11:27 AM [facility] Basophils Relative 0.8 % LAB HEMETOLOGY METHOD 07/13/2024 11:27 AM [facility] Immature Granulocytes Relative 0.3 % LAB HEMETOLOGY METHOD 07/13/2024 11:27 AM [facility] Neutrophils Absolute 4.66 1.50 - 7.00 K/mcL LAB HEMETOLOGY METHOD 07/13/2024 11:27 AM [facility] Lymphocytes Absolute 1.53 1.00 - 5.00 K/mcL LAB HEMETOLOGY METHOD 07/13/2024 11:27 AM [facility] Monocytes Absolute 0.57 0.20 - 1.00 K/mcL LAB HEMETOLOGY METHOD 07/13/2024 11:27 AM EDT [facility] Eosinophils Absolute 0.22 0.00 - 0.50 K/[facility] LAB HEMETOLOGY METHOD 07/13/2024 11:27 AM EDT [facility] Basophils Absolute 0.06 0.00 - 0.20 K/[facility] LAB HEMETOLOGY METHOD 07/13/2024 11:27 AM EDT [facility] Immature Granulocytes Absolute 0.02 0.00 - 0.03 K/[facility] LAB HEMETOLOGY METHOD 07/13/2024 11:27 AM EDT [facility] Blood Venous blood specimen / Unknown 07/13/2024 10:08 AM EDT 07/13/2024 11:14 AM EDT Robert Peck MD LAB BLOOD ORDERABLES Final Res ult [facility] [address] [place] [address], [place] [phone] * Sedimentation rate (07/13/2024 10:08 AM EDT) Sed Rate 16 0 - 20 mm/hr LAB HEMETOLOGY METHOD 07/13/2024 11:37 AM EDT [facility] Blood Venous blood specimen / Unknown 07/13/2024 10:08 AM EDT 07/13/2024 11:14 AM EDT Robert Peck MD LAB BLOOD ORDERABLES Final Res ult [facility] [address] [place] [address], [place] [phone] * (ABNORMAL) Comprehensive metabolic panel (07/13/2024 10:08 AM EDT) Sodium 139 133 - 145 mmol/L LAB CHEMISTRY METHOD 07/13/2024 12:44 PM [facility] Potassium 4.0 3.5 - 5.5 mmol/L LAB CHEMISTRY METHOD 07/13/2024 12:44 PM [facility] Chloride 107 96 - 110 mmol/L LAB CHEMISTRY METHOD 07/13/2024 12:44 PM [facility] CO2 27 21 - 32 mmol/L LAB CHEMISTRY METHOD 07/13/2024 12:44 PM [facility] Anion Gap 5 3 - 11 LAB CHEMISTRY METHOD 07/13/2024 12:44 PM [facility] Glucose 89 70 - 100 mg/dL LAB CHEMISTRY METHOD 07/13/2024 12:44 PM [facility] BUN 12 5 - 25 mg/dL LAB CHEMISTRY METHOD 07/13/2024 12:44 PM [facility] Creatinine 0.87 0.70 - 1.30 mg/dL LAB CHEMISTRY METHOD 07/13/2024 12:44 PM [facility] eGFR 95 >=60 mL/min/1. 73m2 LAB CHEMISTRY METHOD 07/13/2024 12:44 PM [facility] Comment:Calculation based on the Chronic Kidney Disease Epidemiology Collaboration (CKD-EPI) equation refit without adjustment for race. BUN/Creatinine Ratio 13.8 LAB CHEMISTRY METHOD 07/13/2024 12:44 PM [facility] Calcium 9.3 8.5 - 10.5 mg/dL LAB CHEMISTRY METHOD 07/13/2024 12:44 PM [facility] AST (SGOT) 24 10 - 42 unit/L LAB CHEMISTRY METHOD 07/13/2024 12:44 PM [facility] ALT (SGPT) 32 10 - 60 unit/L LAB CHEMISTRY METHOD 07/13/2024 12:44 PM [facility] Alkaline Phosphatase 91 42 - 121 unit/L LAB CHEMISTRY METHOD 07/13/2024 12:44 PM EDT [facility] Total Protein 7.5 6.0 - 8.0 g/dL LAB CHEMISTRY METHOD 07/13/2024 12:44 PM EDT [facility] Albumin 3.9 3.2 - 5.0 g/dL LAB CHEMISTRY METHOD 07/13/2024 12:44 PM EDT [facility] Total Bilirubin 1.8(H) 0.0 - 1.4 mg/dL LAB CHEMISTRY METHOD 07/13/2024 12:44 PM EDT [facility] Blood Venous blood specimen / Unknown 07/13/2024 10:08 AM EDT 07/13/2024 11:11 AM EDT Robert Peck MD LAB BLOOD ORDERABLES Final Res ult Performing Organization Address City/[facility]/ZIP Co de Phone Number [facility] [address] [place] [address], [place] [phone] * Thyroid stimulating hormone (07/13/2024 10:08 AM EDT) Pathologist [facility] TSH 1.15 0.40 - 4.00 mcIU/mL LAB CHEMISTRY METHOD 07/13/2024 1:48 PM EDT [facility] Blood Venous blood specimen / Unknown 07/13/2024 10:08 AM EDT 07/13/2024 11:11 AM EDT Robert Peck MD LAB BLOOD ORDERABLES Final Res ult [facility] [address] [place] [address], [place] [phone] * (ABNORMAL) LDL cholesterol, direct (07/13/2024 10:08 AM EDT) LDL Direct 105(H) <=100 mg/dL LAB CHEMISTRY METHOD 07/13/2024 12:44 PM EDT [facility] Blood Venous blood specimen / Unknown 07/13/2024 10:08 AM EDT 07/13/2024 11:11 AM EDT us Robert Peck MD LAB BLOOD ORDERABLES Final Res ult [facility] [address] [place] [address], documented in this encounter Visit Diagnoses Diagnosis Hyperlipidemia, unspecified Postprocedural hypothyroidism Postsurgical hypothyroidism Essential (primary) hypertension Unspecified essential hypertension Mild intermittent asthma, uncomplicated Unspecified osteoarthritis, unspecified site documented in this encounter Care Teams Hypo Splasher Relationship Specialty Start Date End Date Robert Peck MD [address] [place] [address] PCP - General Internal Medicine 12/19/23 documented as of this encounter
[2024-10-10 08:45] LABS: Creatinine POC 1.0 mg/dL (0.5-1.4); GFR POC > 60
[2024-10-10] MEDS: Sorbitol/Mannit/Xanth Imaging 500 ML LIQUID 1500 ML PO (09:30)
[2024-10-10] MEDS: iohexoL 350 MG/ML 100 ML INFUS..BTL IV (09:30)
== END 2024-10-10 07:35 | disposition home or self-care (01) ==
LOC: HO.CT 07:34
PROVIDERS: PCP Internal Medicine; Visit Provider Internal Medicine Gastroenterology
DX: K50.90 Crohn's disease, unspecified, without complications (principal); M45.9 Ankylosing spondylitis of unspecified sites in spine
CPT/HCPCS: 74177; 82565; Q9967

== ENCOUNTER → 2024-10-10 07:36 | Outpatient (BNV) | payer BC, SELFPAY | PROVIDERS: PCP Internal Medicine; Visit Provider Radiology Diagnostic Radiology | DX: K50.90 Crohn's disease, unspecified, without complications (principal) | CPT/HCPCS: 74177 ==

== ENCOUNTER 2024-12-18 08:38 | Day surgery (SDC) | payer BC, SELFPAY ==
--- OUTSIDE RECORDS SUMMARY | 2024-12-06 06:59 | XMS_ITS | Encounter Summary ---
Author Organization [facility] Address [address] [place] [address] Care Team Providers Care Fruit Harvest Worker Name Role Phone Robert Peck MD Primary Care Provider [phone] Encounter Details Date Type Department Care Team (Late Contact Info) Description 04/04/2024 Lab Requisition [facility] - Main Lab 299 [facility] [place] [phone] Camron Bowen MD [address] [facility] [address] [place] [phone] Benign prostatic hyperplasia with lower urinary tract [...] Department Care Team (Late Contact Info) Description 01/23/2025 9:30 AM EST Office Visit Orthopedic Surgery - [place] [address] [phone] Migue Kamara, DPM [address] [phone] documented as of this encounter Procedures Procedure Name Priority Date/Time Associated Diagnosis Comments PROSTATE SPECIFIC ANTIGEN DIAGNOSTIC Routine 04/04/2024 11:44 AM EST Benign prostatic hyperplasia with lower urinary tract symptoms documented in this encounter Results * Prostate specific antigen diagnostic (04/04/2024 11:44 AM EST) PSA 3.72 0.00 - 4.00 ng/mL LAB CHEMISTRY METHOD 04/04/2024 10:33 PM EST [facility] Blood Venous blood specimen / Unknown 04/04/2024 11:44 AM EST 04/04/2024 5:45 PM EST Narrative [facility] - 04/04/2024 10:33 PM EST The Siemens Advia Centaur Chemiluminescent Immunoassay is used. Results obtained with different assay methods or kits cannot be used interchangeably. Results cannot be interpreted as absolute evidence of the presence or absence of malignant disease. us Camron Bowen MD LAB BLOOD ORDERABLES Final Resul t [facility] [address] [place] [address], documented in this encounter Visit Diagnoses Diagnosis Benign prostatic hyperplasia with lower urinary tract symptoms documented in this encounter Care Teams Fruit Harvest Worker Relationship Specialty Start Date End Date Robert Peck MD [address] [place] [address] PCP - General Internal Medicine 12/19/23 documented as of this encounter
--- OUTSIDE RECORDS SUMMARY | 2024-12-06 06:59 | XMS_ITS | Encounter Summary ---
Author Organization [facility] Address [address] [place] [address] Care Team Providers Care Senior Corporate Strategy Manager Name Role Phone Robert Peck MD Primary Care Provider [phone] Encounter Details Date Type Department Care Team (Late Contact Info) Description 11/12/[address] [facility] - Main Lab 299 [facility] [place] [phone] Robert Peck MD [address] [place] [address] Hyperlipidemia, unspecified; Encounter for general adult medical examination without abnormal findings; Postprocedural hypothyroidism; Gout, unspecified; Essential (primary) hypertension; Unspecified osteoarthritis, unspecified site Social History Tobacco Use Types Packs/Day Years Used Date Smoking Tobacco: Never Assessed Sex and Gender Information Value Date Recorded Sex Assigned at Not on file Legal Sex Male 5:13 PM EST Gender Identity Not on file Sexual Orientation Not on file documented as of this encounter Plan of Treatment Upcoming Encounters Date Type Department Care Team (Late st Contact Info) Description 01/23/2025 9:30 AM EST Office Visit Orthopedic Surgery - [place] [address] [phone] Migue Kamara DPNayana [address] [phone] Scheduled Orders Name Type Priority Associated Diagnoses Orde r Schedule LDL cholesterol, direct Lab Routine Hyperlipidemia, unspecified Encounter for general adult medical examination without abnormal findings Ordered: 11/12/2024 Thyroid stimulating hormone Lab Routine Postprocedural hypothyroidism Ordered: 11/12/2024 Uric acid Lab Routine Encounter for general adult medical examination without abnormal findings Gout, unspecified Ordered: 11/12/2024 Comprehensive metabolic panel Lab Routine Encounter for general adult medical examination without abnormal findings Essential (primary) hypertension Ordered: 11/12/2024 Sedimentation rate Lab Routine Unspecified osteoarthritis, unspecified site Ordered: 11/12/2024 documented as of this encounter Visit Diagnoses Diagnosis Hyperlipidemia, unspecified Encounter for general adult medical examination without abnormal findings Postprocedural hypothyroidism Postsurgical hypothyroidism Gout, unspecified Essential (primary) hypertension Unspecified essential hypertension Unspecified osteoarthritis, unspecified site documented in this encounter Care Teams Senior Corporate Strategy Manager Relationship Specialty Start Date End Date Robert Peck MD [address] [place] [phone] PCP - General Internal Medicine 12/19/23 documented as of this encounter
--- OUTSIDE RECORDS SUMMARY | 2024-12-06 06:59 | XMS_ITS | Encounter Summary ---
Author Organization [facility] Address [address] [place] [address] Care Team Providers Care Shade Cutter Name Role Phone Robert Peck MD Primary Care Provider [phone] Encounter Details Date Type Department Care Team ([facility] Contact Info) Description 07/13/2024 Lab Requisition [facility] - Main Lab 299 [facility] [employer] [place] [phone] Robert Peck MD [address] [place] [address] Hyperlipidemia, unspecified; Postprocedural hypothyroidism; Essential (primary) hypertension; [...] AM EST Office Visit Orthopedic Surgery - [place] [address] [phone] Migue Kamara DPM [address] [phone] documented as of this encounter Procedures Procedure [...] CBC auto differential (07/13/2024 10:08 AM EDT) [facility] WBC 7.1 4.8 - 10.8 K/mcL LAB HEMETOLOGY METHOD 07/13/2024 11:[address] [facility] RBC 4.90 4.50 - 5.50 M/mcL LAB HEMETOLOGY METHOD 07/13/2024 11:[address] [facility] Hemoglobin 14.6 13.5 - 17.5 g/dL LAB HEMETOLOGY METHOD 07/13/2024 11:[address] [facility] Hematocrit 42.4 42.0 - 54.0 % LAB HEMETOLOGY METHOD 07/13/2024 11:[address] [facility] MCV 86.0 79.0 - 98.0 FL LAB HEMETOLOGY METHOD 07/13/2024 11:[address] [facility] MCH 29.6 27.0 - 32.0 pcg LAB HEMETOLOGY METHOD 07/13/2024 11:[address] [facility] MCHC 34.4 32.0 - 37.0 g/dL LAB HEMETOLOGY METHOD 07/13/2024 11:[address] [facility] RDW 13.1 11.0 - 15.0 % LAB HEMETOLOGY METHOD 07/13/2024 11:[address] [facility] Platelets 238 130 - 400 K/mcL LAB HEMETOLOGY METHOD 07/13/2024 11:[address] [facility] MPV 9.2 7.0 - 11.0 FL LAB HEMETOLOGY METHOD 07/13/2024 11:[address] [facility] NRBC 0.0 <1.0 % LAB HEMETOLOGY METHOD 07/13/2024 11:[address] [facility] NRBC Absolute 0.00 <0.10 K/mcL LAB HEMETOLOGY METHOD 07/13/2024 11:[address] [facility] Neutrophils Relative 66.0 % LAB HEMETOLOGY METHOD 07/13/2024 11:[address] [facility] Lymphocytes Relative 21.7 % LAB HEMETOLOGY METHOD 07/13/2024 11:[address] [facility] Monocytes Relative 8.1 % LAB HEMETOLOGY METHOD 07/13/2024 11:[address] [facility] Eosinophils Relative 3.1 % LAB HEMETOLOGY METHOD 07/13/2024 11:[address] [facility] Basophils Relative 0.8 % LAB HEMETOLOGY METHOD 07/13/2024 11:[address] [facility] Immature Granulocytes Relative 0.3 % LAB HEMETOLOGY METHOD 07/13/2024 11:[address] [facility] Neutrophils Absolute 4.66 1.50 - 7.00 K/mcL LAB HEMETOLOGY METHOD 07/13/2024 11:[address] [facility] Lymphocytes Absolute 1.53 1.00 - 5.00 K/mcL LAB HEMETOLOGY METHOD 07/13/2024 11:[address] [facility] Monocytes Absolute 0.57 0.20 - 1.00 K/mcL LAB HEMETOLOGY METHOD 07/13/2024 11:27 AM EDT [facility] Eosinophils Absolute 0.22 0.00 - 0.50 K/[facility] LAB HEMETOLOGY METHOD 07/13/2024 11:27 AM EDT [facility] Basophils Absolute 0.06 0.00 - 0.20 K/[facility] LAB HEMETOLOGY METHOD 07/13/2024 11:27 AM EDT [facility] Immature Granulocytes Absolute 0.02 0.00 - 0.03 K/[facility] LAB HEMETOLOGY METHOD 07/13/2024 11:27 AM EDT [facility] Blood Venous blood specimen / Unknown 07/13/2024 10:08 AM EDT 07/13/2024 11:14 AM EDT Robert Peck MD LAB BLOOD ORDERABLES Final Res ult [facility] [address] [place] [address], [place] [phone] * Sedimentation rate (07/13/2024 10:08 AM EDT) Sed Rate 16 0 - 20 mm/hr LAB HEMETOLOGY METHOD 07/13/2024 11:37 AM EDT [facility] Blood Venous blood specimen / Unknown 07/13/2024 10:08 AM EDT 07/13/2024 11:14 AM EDT Robert Peck MD LAB BLOOD ORDERABLES Final Res ult [facility] [address] [place] [address], [place] [phone] * (ABNORMAL) Comprehensive metabolic panel (07/13/2024 10:08 AM EDT) Sodium 139 133 - 145 mmol/L LAB CHEMISTRY METHOD 07/13/2024 12:[address] [facility] Potassium 4.0 3.5 - 5.5 mmol/L LAB CHEMISTRY METHOD 07/13/2024 12:[address] [facility] Chloride 107 96 - 110 mmol/L LAB CHEMISTRY METHOD 07/13/2024 12:[address] [facility] CO2 27 21 - 32 mmol/L LAB CHEMISTRY METHOD 07/13/2024 12:[address] [facility] Anion Gap 5 3 - 11 LAB CHEMISTRY METHOD 07/13/2024 12:[address] [facility] Glucose 89 70 - 100 mg/dL LAB CHEMISTRY METHOD 07/13/2024 12:[address] [facility] BUN 12 5 - 25 mg/dL LAB CHEMISTRY METHOD 07/13/2024 12:[address] [facility] Creatinine 0.87 0.70 - 1.30 mg/dL LAB CHEMISTRY METHOD 07/13/2024 12:[address] [facility] eGFR 95 >=60 mL/min/1. 73m2 LAB CHEMISTRY METHOD 07/13/2024 12:[address] [facility] Comment:Calculation based on the Chronic Kidney Disease Epidemiology Collaboration (CKD-EPI) equation refit without adjustment for race. BUN/Creatinine Ratio 13.8 LAB CHEMISTRY METHOD 07/13/2024 12:[address] [facility] Calcium 9.3 8.5 - 10.5 mg/dL LAB CHEMISTRY METHOD 07/13/2024 12:[address] [facility] AST (SGOT) 24 10 - 42 unit/L LAB CHEMISTRY METHOD 07/13/2024 12:[address] [facility] ALT (SGPT) 32 10 - 60 unit/L LAB CHEMISTRY METHOD 07/13/2024 12:[address] [facility] Alkaline Phosphatase 91 42 - 121 unit/L LAB CHEMISTRY METHOD 07/13/2024 12:44 PM EDT [facility] Total Protein 7.5 6.0 - 8.0 g/dL LAB CHEMISTRY METHOD 07/13/2024 12:44 PM EDT [facility] Albumin 3.9 3.2 - 5.0 g/dL LAB CHEMISTRY METHOD 07/13/2024 12:44 PM EDT [facility] Total Bilirubin 1.8(H) 0.0 - 1.4 mg/dL LAB CHEMISTRY METHOD 07/13/2024 12:44 PM EDT [facility] Blood Venous blood specimen / Unknown 07/13/2024 10:08 AM EDT 07/13/2024 11:11 AM EDT Robert Peck MD LAB BLOOD ORDERABLES Final Res ult Performing Organization Address City/[facility]/ZIP Co de Phone Number [facility] [address] [place] [address], [place] [phone] * Thyroid stimulating hormone (07/13/2024 10:08 AM EDT) Pathologist [facility] TSH 1.15 0.40 - 4.00 mcIU/mL LAB CHEMISTRY METHOD 07/13/2024 1:48 PM EDT [facility] Blood Venous blood specimen / Unknown 07/13/2024 10:08 AM EDT 07/13/2024 11:11 AM EDT Robert Peck MD LAB BLOOD ORDERABLES Final Res ult [facility] [address] [place] [address], [place] [phone] * (ABNORMAL) LDL cholesterol, direct (07/13/2024 10:08 AM EDT) LDL Direct 105(H) <=100 mg/dL LAB CHEMISTRY METHOD 07/13/2024 12:44 PM EDT [facility] Blood Venous blood specimen / Unknown 07/13/2024 10:08 AM EDT 07/13/2024 11:11 AM EDT us Robert Peck MD LAB BLOOD ORDERABLES Final Res ult [facility] [address] [place] [address], documented in this encounter Visit Diagnoses Diagnosis Hyperlipidemia, unspecified Postprocedural hypothyroidism Postsurgical hypothyroidism Essential (primary) hypertension Unspecified essential hypertension Mild intermittent asthma, uncomplicated Unspecified osteoarthritis, unspecified site documented in this encounter Care Teams Shade Cutter Relationship Specialty Start Date End Date Robert Peck MD [address] [place] [address] PCP - General Internal Medicine 12/19/23 documented as of this encounter
--- OUTSIDE RECORDS SUMMARY | 2024-12-06 06:59 | XMS_ITS | Clinical Summary ---
Author Organization 175 [facility] Address [address] [place] [address] Phone Care Team Providers Care Toolroom Machinist Name Role Phone Robert Peck MD Primary Care Provider [phone] Allergies No known active allergies Medications adalimumab (Humira Pen) 40 mg/0.8 mL pen 40 mg mL Active silver sulfADIAZINE (SILVADENE, SSD) 1 % cream 1 (one) time each day. APPLY AND RUB IN A THIN FILM TO AFFECTED AREAS TWICE DAILY.(AM AND PM). Active Encounters Date Type Department Care Team Description 11/12/2024 Lab Requisition [facility] - Main Lab [address] [facility] [place] [address] Robert Peck MD Hyperlipidemia, unspecified; Encounter for general adult medical examination without abnormal findings; Postprocedural hypothyroidism; Gout, unspecified; Essential (primary) hypertension; Unspecified osteoarthritis, unspecified site 10/23/2024 9:15 AM EDT Office Visit Orthopedic Surgery - [place] [address] [facility] [address] [place] [address] Migue Kamara DPM Hammer toe of left foot (Primary Dx); Acquired hallux valgus of left foot; Acquired hallux valgus of right foot; Pain in toe of left foot; Dermatophytosis of nail; Pain in toe of right foot; Difficulty walking; Acquired hammer toe of right foot from Last 3 Months Social History Tobacco Use Types Packs/Day Years Used Date Smoking Tobacco: Never Assessed Sex and Gender Information Value Date Recorded Sex Assigned at Not on file Legal Sex Male 5:13 PM EST Gender Identity Not on file Sexual Orientation Not on file Last Filed Vital Signs Vital Sign Reading Time Taken Comments Blood Pressure - - Pulse - - Temperature - - Respiratory Rate - - Oxygen Saturation - - Inhaled Oxygen Concentration - - Weight 86.2 kg (190 lb) 04/25/2024 9:48 AM EST Height 167.6 cm (5' 5.98 ) 04/25/2024 9:48 AM ES T Body Mass Index 30.68 04/25/2024 9:48 AM EST Plan of Treatment Upcoming Encounters Date Type Department Care Team (Late st Contact Info) Description 01/23/2025 9:30 AM EST Office Visit Orthopedic Surgery - [place] [address] [address] Migue Kamara, DPM [address] [address] Health Maintenance Due Date Last Done Comments DTaP,Tdap,and Td Vaccines (1 - Tdap) 1976 RSV Immunization Adult Patients (1 - Risk 60-74 years 1-dose series) 2017 Colorectal Cancer Screening: Colonoscopy 02/20/2022 Medicare Annual Wellness Visit 02/20/2022 Social Influencers of Health Screening 02/20/2022 Falls Risk Assessment 2022 Depression Screening 03/21/2024 COVID-19 Vaccine ( season) 2024 12/25/2022, 01/22/2021, 07/16/2020, Additional history exists Influenza Vaccine (#1) 2024 , 02/07/2021, 12/23/2019, Additional history exists Hypertension/CHF/CAD Annual BMP Blood Test 07/13/2025 07/13/2024, 03/02/2024 Cholesterol Screening (Lipid Panel) 07/13/2029 07/13/2024, 03/02/2024 Zoster Vaccines Completed 06/26/2018, 04/17/2018 Pneumococcal Vaccine: 50+ Years Completed 12/25/2022, 01/23/2016 Hepatitis C Screening Completed 03/02/2024 HIB Vaccines Aged Out No longer eligi ble based on patient's age to complete this topic HPV Vaccines Aged Out No longer eligi ble based on patient's age to complete this topic Hepatitis A Vaccines Aged Out No long er eligible based on patient's age to complete this topic Hepatitis B Vaccines Aged Out No long er eligible based on patient's age to complete this topic IPV Vaccines Aged Out No longer eligi ble based on patient's age to complete this topic MMR Vaccines Aged Out No longer eligi ble based on patient's age to complete this topic Meningococcal ACWY Vaccine Aged Out N o longer eligible based on patient's age to complete this topic Meningococcal B Vaccine Aged Out No l onger eligible based on patient's age to complete this topic RSV Immunization Patients Under 20 months Aged Out No longer eligible based on patient's age to complete this topic Varicella Vaccines Aged Out No longer eligible based on patient's age to complete this topic Procedures Procedure Name Priority Date/Time Associated Diagnosis Comments COMPREHENSIVE METABOLIC PANEL Routine 07/13/2024 10:08 AM EDT Essential (primary) hypertension LDL CHOLESTEROL, DIRECT Routine 07/13/2024 10:08 AM EDT Hyperlipidemia, unspecified HEPATITIS C ANTIBODY Routine 03/02/2024 7:56 AM EST Anemia, unspecified Encounter for general adult medical examination with abnormal findings Hyperlipemia Blood glucose elevated Referral of patient without examination or treatment Senile arthritis Urinary frequency Fatigue 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 from Last 3 Months or Most Recently Relevant to Health Maintenance Results * (ABNORMAL) LDL cholesterol, direct (07/13/2024 10:08 AM EDT) LDL Direct 105(H) <=100 mg/dL LAB CHEMISTRY METHOD 07/13/2024 12:44 PM EDT [facility] Blood Venous blood specimen / Unknown 07/13/2024 10:08 AM EDT 07/13/2024 11:11 AM EDT us Robert Peck MD LAB BLOOD ORDERABLES Final Res ult [facility] [address] [place] [address], [place] [phone] * (ABNORMAL) Comprehensive metabolic panel (07/13/2024 10:08 [...] LAB CHEMISTRY METHOD 07/13/2024 12:44 PM EDT [facility] ALT (SGPT) 32 10 - 60 unit/L LAB CHEMISTRY METHOD 07/13/2024 12:44 PM EDT [facility] Alkaline Phosphatase 91 42 - 121 unit/L LAB CHEMISTRY METHOD 07/13/2024 12:44 PM EDT [facility] Total Protein 7.5 6.0 - 8.0 g/dL LAB CHEMISTRY METHOD 07/13/2024 12:44 PM EDT [facility] Albumin 3.9 3.2 - 5.0 g/dL LAB CHEMISTRY METHOD 07/13/2024 12:44 PM EDT [facility] Total Bilirubin 1.8(H) 0.0 - 1.4 mg/dL LAB CHEMISTRY METHOD 07/13/2024 12:44 PM EDT [facility] Blood Venous blood specimen / Unknown 07/13/2024 10:08 AM EDT 07/13/2024 11:11 AM EDT us Robert Peck MD LAB BLOOD ORDERABLES Final Res ult [facility] [address] [place] [address], [place] [phone] * Hepatitis C antibody (03/02/2024 7:56 AM EST) Hepatitis C Antibody Negative Negative LAB CHEMISTRY METHOD 03/02/2024 10:50 AM EST [facility] Blood Venous blood specimen / Unknown Venipuncture / Unknown 03/02/2024 7:56 AM EST 03/02/2024 9:13 AM EST Robert Peck MD LAB BLOOD ORDERABLES Final Res ult [facility] [address] [place] [address], [place] [phone] from Last 3 Months or Most Recently Relevant to Health Maintenance Insurance [facility] - [place] MEDICARE ADVANTAGE Care Teams Toolroom Machinist Relationship Specialty Start Date End Date Robert Peck MD [address] [place] [id number] PCP - General Internal Medicine 12/19/23
--- NOTE | 2024-12-17 10:56 | P.CONAN_ITS ---
Documented by User: Rox Kessler NP 12/17/24 10:58 HPI - Anesthesia Eval Consult details Narrative: 69 yr old male for colonoscopy [facility] Active Problems Active Problems: All Active Problems Poulan disease (Acute) Ankylosing spondylitis (Acute) Crohn's disease (Acute) Crohn's disease in remission (Acute) Family History Family History Mother Dementia Father Cancer Brother Heart attack Surgical History Surgical History History of esophagogastroduodenoscopy (EGD) Hx of hernia repair Hx of colonoscopy (~2017) Social History Social History Household Members: Spouse Alcohol intake: never Patient Tobacco Use Status: Never used Tobacco e-Cigarette/Vaping Use: Never Used Use of substances other than those prescribed or required for medical reasons: No Are you DNR?: No Advance Directives: No Advance Directives Information Provided: Yes Poor oral hygiene: No Meds Allergies Allergy/AdvReac Type Severity Reaction Status Date / Time Seasonal Allergies Allergy Mild runny nose Verified 08/27/24 12:34 Home Medications ?Medication ?Instructions ?Recorded ?Confirmed ?Last Taken ?Type omeprazole magnesium 20 mg 20 mg PO DAILY 12/21/19 Unknown History tablet,delayed release (Prilosec OTC) acetaminophen 650 mg 650 mg PO ONCE PRN arthritis 04/17/21 12/18/24 Unknown History tablet,extended release (Tylenol 8 Hour) oxybutynin chloride 10 mg 10 mg PO DAILY 12/18/24 09 Unknown History tablet,extended release 24 hr tamsulosin 0.4 mg capsule 0.4 mg PO BEDTIME 12/18/24 0 12/18/24 Unknown History Documented by User: Temo Basilio MD 12/18/24 11:46 [facility] Family History Family History Mother Dementia Father Cancer Brother Heart attack Family history of problems with anesthesia: No Surgical History Surgical History History of esophagogastroduodenoscopy (EGD) Hx of hernia repair Hx of colonoscopy (~2016) History of Problems with Anesthesia: No Social History Social History Household Members: Spouse Alcohol intake: never Patient Tobacco Use Status: Never used Tobacco e-Cigarette/Vaping Use: Never Used Use of substances other than those prescribed or required for medical reasons: No Are you DNR?: No Advance Directives: No Advance Directives Information Provided: Yes Poor oral hygiene: No Meds Allergies Allergy/AdvReac Type Severity Reaction Status Date / Time Seasonal Allergies Allergy Mild runny nose Verified 08/27/24 12:34 Home Medications ?Medication ?Instructions ?Recorded ?Confirmed ?Last Taken ?Type omeprazole magnesium 20 mg 20 mg PO DAILY 12/21/19 Unknown History tablet,delayed release (Prilosec OTC) acetaminophen 650 mg 650 mg PO ONCE PRN arthritis 04/17/21 12/18/24 Unknown History tablet,extended release (Tylenol 8 Hour) oxybutynin chloride 10 mg 10 mg PO DAILY 12/18/2411/21 Unknown History tablet,extended release 24 hr tamsulosin 0.4 mg capsule 0.4 mg PO BEDTIME 12/18/24 0 12/18/24 Unknown History Exam Exam Date and Time: 12/18/24 Airway Mallampati Class: II TM Dist: >3cm Neck ROM: Full Heart: RRR Lungs: ctab vesicular Assessment and Plan Assessment Anesthesia Assessment: Anesthesia Plan Discussed and Chart Reviewed Final Anesthetic Review Family History of Problems with Anesthesia: No History of Problems with Anesthesia: No NPO: Yes ASA Class: II Final Preanesthetic Review: No Changes in Pt Med Stat, Meds/Allgs Chart Reviewed, Consent Obtained/Reviewed and Anes Risks/Benef Reviewed Patient Risk: Low Procedure Risk: Low Anesthetic Plan Anesthetic Plan: MAC: Disposition: Standard PACU
[2024-12-18 10:24] VITALS: BMI 30.1
[2024-12-18 10:41] VITALS: BP 121/74; PULSE 62; RESP 16; TEMP 36.3; O2SAT 95
[2024-12-18] MEDS: Lactated Ringers 1,000 ML 100 ML IVCONT (10:56)
--- NOTE | 2024-12-18 11:41 | MHC.SHP ---
Pre-Procedural Eval Section A - 24 Hr Update-Section A only Date of Service: 12/18/24 Section B - Complete if H&P > 30 days Chief Complaint: Crohn's disease, unspecified, without complication Relevant Family History (Specify if Yes): No Relevant Social History: None Present Medications: see Short Stay Collaborative assessment Medical History: Significant History (, crohns ) History of Previous Operations: Relevant previous surgery/procedure and date(s) (History of esophagogastroduodenoscopy (EGD) Hx of hernia repair Hx of colonoscopy (~2016)) Allergies: Allergies Allergy/AdvReac Type Severity Reaction Status Date / Time Seasonal Allergies Allergy Mild runny nose Verified 08/27/24 12:34 Review of Systems Sugical H&P ROS: Negative: Constitution, Cardiovascular, Respiratory, Neurological, Psychiatric, Hem-Onc, Allergic/Immunologic, Gastrointestinal, Genitourinary, Musculoskeletal, Integumentary, Endocrine and Eyes/Ears/Nose/Throat Exam Surgical H&P Exam: Normal: HEENT, Normal: Heart, Normal: Lungs, Normal: Extremities, Normal: Abdomen, Normal: Skin and Normal: Neurological Plan Diagnosis/Plan: Unchanged I have reviewed the history and physical and performed a pertinent physical examination on my patient. No changes have occurred unless specified. Time Spent With Patient Time: Total time managing care of this patient today ____ minutes.
--- NOTE | 2024-12-18 12:18 | HO.OPN-COLON ---
Colonoscopy Operative Note Operative Note Date of Service: 12/18/24 Narrative: Operative Information Procedure Description: Colonoscopy Indication: hx of crohns Anesthesia: MAC COLONOSCOPY Instrument: Olympus variable stiffness pediatric scope 190L Colonoscopy Monitoring: Vital signs and clinical assessment, continuous EKG monitoring, Pulse oximetry, Carbon Dioxide monitoring and blood pressure monitoring were done throughout the procedure. Colon withdrawal time was 9 minutes. Procedure: The patient was placed in the left lateral decubitis position and pre-procedure medications were administered. After a digital rectal examination of the ano-rectum, the video colonoscope was inserted into the rectum and advanced through the colon to the cecum/TI. The colonoscope was slowly withdrawn in a retrograde panoramic fashion and the colon mucosa was carefully examined including a retroflexed view of the rectum. Findings and interventions are described below. Procedure Difficulty: easy Findings: Terminal Ileum-normal, bx taken Random bx taken from right and left colon Cecum: x 1 sessile polyp 4 mm removed from cecum and also 4-6 mm sessile polyp over the ileocecal valve area Ascending Colon: normal Transverse Colon -normal Descending Colon:normal Sigmoid Colon: normal Rectum: Retroflexion with small internal hemorrhoids seen, grade I Anorectum - normal Intervention: cold forceps Colon preparation: [place] Bowel Preparation Scale Right colon; 2 Transverse colon: 2 Left colon; 2 (0 = Unprepared colon segment with mucosa not seen due to solid stool that cannot be cleared. 1 = Portion of mucosa of the colon segment seen, but other areas of the colon segment not well seen due to staining, residual stool and/or opaque liquid. 2 = Minor amount of residual staining, small fragments of stool and/or opaque liquid, but mucosa of colon segment seen well. 3 = Entire mucosa of colon segment seen well with no residual staining, small fragments of stool or opaque liquid) Impression and Post Procedure Diagnosis: colon polyps x 2 internal hemorrhoids Plan: High fiber diet leaflet Avoid straining at stool, epsom salts and sitz bath, anusol supps or cream Repeat Colonoscopy in 2-3 years for screening or earlier if clinically indicated Above findings were reviewed with the patient and relevant handouts were provided if indicated.
[2024-12-18 12:20] VITALS: BP 107/61; PULSE 65; RESP 12; TEMP 36.1; O2SAT 97
[2024-12-18 12:35] VITALS: BP 124/66; PULSE 60; RESP 16; TEMP 36.2; O2SAT 98
== END 2024-12-18 13:30 | disposition home or self-care (01) ==
PROVIDERS: PCP Internal Medicine; Visit Provider Internal Medicine Gastroenterology
PROC: 0DJD8ZZ Inspection of Lower Intestinal Tract, Via Natural or Artificial Opening Endoscopic (ICD-10-PCS; CPT 45378; principal; 2024-12-18 12:30)
DX: K50.90 Crohn's disease, unspecified, without complications (principal); K63.5 Polyp of colon; K64.0 First degree hemorrhoids; M54.9 Dorsalgia, unspecified; K75.81 Nonalcoholic steatohepatitis (NASH); J30.2 Other seasonal allergic rhinitis; Z79.620 Long term (current) use of immunosuppressive biologic; Z79.899 Other long term (current) drug therapy; Z98.890 Other specified postprocedural states
CPT/HCPCS: 45380; 88305; J2003; J2405; J2704

== ENCOUNTER → 2024-12-18 08:38 | Outpatient (BNV) | payer BC, SELFPAY | PROVIDERS: PCP Internal Medicine; Visit Provider Internal Medicine Gastroenterology | DX: K50.90 Crohn's disease, unspecified, without complications (principal); D12.0 Benign neoplasm of cecum; K64.0 First degree hemorrhoids | CPT/HCPCS: 45380 ==

== ENCOUNTER 2025-01-14 11:48 | Outpatient (AMB) | payer BC, SELFPAY ==
[2025-01-14 12:30] VITALS: BP 96/47; PULSE 69; BMI 30.5
--- NOTE | 2025-01-14 12:30 | A.OFFVIS_ITS ---
Vital Signs 01/14/25 12:30 Height 5 ft 6 in Weight 189 lb BMI 30.5 BP 96/47 L Blood Pressure Location Lt brachial Position Sitting Pulse 69 Intake Visit Reasons: 4 month follow up Intake Note: Bello in office today in follow up s/p colonoscopy. CC: Patient reports that he has been keeping a diary as advised per Dr. Bentley. He states that he has good and bad days. 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 I also dx him with based on exam findings and XR. He did have sx of diarrhea, and rheum started him on humira which worked great spine had been getting worse and rheum had talked of stopping or changing humira insurance refused stelara eventually got simponi and it helped his joints a lot his rheum has been trying to get stelara but refused by insurance I ordered stelara for him to see if helps joints and abdominal sx Tests; EGD/colonoscopy- focal colitis, grade D esophagitis MRe 07/2017- normal fecal calprotectin- neg. repeat fecal calprotectin 10/2018- 168, repeat; 132 (04/2019) rechecked 03/2019--136 rechecked 04/2020--fecal raman was normal (had been advised to stop NSAID before then), rept calprotectin: 132 ada level-10/2018-8, no ab in blood crp 10/2018 neg mild bili elevation prob gilberts MRe; 10/2018--no inflammation noted in GI tract, no fistula VCE: 12/27/18--normal, no erosions, normal stomach and small bowel mucosa calprotectin 280 ----03/2021 fecal lactoferrin from 12/10 was negative Anthon 12/13: Impression and Post Procedure Diagnosis: colon polyps x 2 internal hemorrhoids Path: hyperplastic changes, no active inflammation INTERIM: he is on biosimilar stelera formulation he is goping to toilet a lot kept food diary, cutting out dairy joints are still sore, waiting to see rheum stool is soft or formed, no blood EXAM: GENERAL: The patient is well developed and nontoxic, stiffness VITAL SIGNS:see workflow HEENT: Nonicteric sclerae, PERRLA, EOMI. Oropharynx clear. Moist mucous membranes. Conjunctivae appear well perfused. No thyroid mass. CHEST: Chest wall is nontender. HEART: Regular rate and rhythm without murmurs. LUNGS: Clear to auscultation bilaterally. ABDOMEN: Soft, positive bowel sounds, nontender, no organomegaly.no flank tenderness SKIN: No rash, no excessive bruising, petechiae, or purpura. NEUROLOGIC: Cranial nerves II-XII intact without motor/sensory deficit. MS: loss of lumbar lordosis Assessment & Plan (1) Crohn's disease--on stelara biosimilar, no acute disease on bx or imaging--ongoing sx, ddx: IBS, SIBO, CHO intolerance, gluten intolerance, bile acid malab PLAN: 1/ Cont with stellara biosimilar 2/ trial of abx for 2 weeks --if no better then mesalamine trial vs trial of bentyl, levsin 3/ daily [facility] Surgical History History of esophagogastroduodenoscopy (EGD) Hx of hernia repair Hx of colonoscopy (~2016) Family History Mother Dementia Father Cancer Brother Heart attack Social History Household Members: Spouse Alcohol intake: never Patient Tobacco Use Status: Never used Tobacco e-Cigarette/Vaping Use: Never Used Physical Exam Vital Signs: Last Vital Signs Pulse 69 01/14/25 12:30 BP 96/47 L 01/14/25 12:30 BMI result Body Mass Index 30.5 Assessment & Plan Assessment & Plan (1) Crohn's disease: Code(s): K50.90 - Crohn's disease, unspecified, without complications Category: Medical Plan: as above Medications: New rifaximin 550 mg PO TID 42 tabs 0RF 2 weeks Coding Level of Care Code Est Pt Level 3 (10755) Diagnoses Crohn's disease K50.90
--- OUTSIDE RECORDS SUMMARY | 2025-01-14 15:14 | XMS_ITS | Encounter Summary ---
Author Organization [facility] Address [address] [place] [address] Care Team Providers Care Garden Worker Name Role Phone Robert Peck MD Primary Care Provider [phone] Encounter Details Date Type Department Care Team (Late Contact Info) Description 04/04/2024 Lab Requisition [facility] - Main Lab [address] [facility] [place] [phone] Camron Bowen MD [address] [facility] [address] [place] [phone] Benign prostatic hyperplasia with lower urinary tract [...] AM EST Office Visit Orthopedic Surgery - [place] [address] [facility] [address] [place] [phone] Migue Kamara, DPM [address] [place] [phone] documented as of this encounter Procedures Procedure [...] t [facility] [address] [place] [address], documented in this encounter Visit Diagnoses Diagnosis Benign prostatic hyperplasia with lower urinary tract symptoms documented in this encounter Care Teams Garden Worker Relationship Specialty Start Date End Date Robert Peck MD [address] [place] [address] PCP - General Internal Medicine 12/19/23 documented as of this encounter
--- OUTSIDE RECORDS SUMMARY | 2025-01-14 15:14 | XMS_ITS | Clinical Summary ---
Author Organization 175 [facility] Address [address] [place] [address] Phone Care Team Providers Care Nursing Informatics Specialist Name Role Phone Robert Peck MD Primary Care Provider [phone] Allergies No known active allergies Medications adalimumab (Humira Pen) 40 mg/0.8 mL pen 40 mg mL Active silver sulfADIAZINE (SILVADENE, SSD) 1 % cream 1 (one) time each day. APPLY AND RUB IN A THIN FILM TO AFFECTED AREAS TWICE DAILY.(AM AND PM). Active Encounters Date Type Department Care Team Description 11/12/2024 Lab Requisition [facility] - Main Lab [address] [facility] [place] [address] Robert Peck MD Hyperlipidemia, unspecified; Encounter for general adult medical examination without abnormal findings; Postprocedural hypothyroidism; Gout, unspecified; Essential (primary) hypertension; Unspecified osteoarthritis, unspecified site 10/23/2024 9:15 AM EDT Office Visit Orthopedic Surgery - [place] [address] [facility] [address] [place] [address] Migue Kamara DPM Hammer toe [...] AM EST Office Visit Orthopedic Surgery - [place] [address] [place] [phone] Migue Kamara, DPM [address] [place] [phone] Health Maintenance Due Date Last Done Comments Colorectal Cancer Screening: Colonoscopy 1957 DTaP,Tdap,and Td Vaccines (1 - Tdap) 1976 Medicare Annual Wellness Visit 02/20/2022 Social Influencers of Health Screening 02/20/2022 Falls Risk Assessment 2022 Depression Screening 03/21/2024 COVID-19 Vaccine ( season) 2024 12/25/2022, 01/22/2021, 07/16/2020, Additional history exists Influenza Vaccine (#1) 2024 , 02/07/2021, 12/23/2019, Additional history exists Hypertension/CHF/CAD Annual BMP Blood Test 12/28/2025 12/28/2024, 07/13/2024, 03/02/2024 Cholesterol Screening (Lipid Panel) 12/28/2029 12/28/2024, 07/13/2024, 03/02/2024 RSV Immunization Adult Patients (1 - 1-dose 75+ series) 2032 Zoster Vaccines Completed 06/26/2018, 04/17/2018 Pneumococcal Vaccine: [...] Procedure Name Priority Date/Time Associated Diagnosis Comments URIC ACID Routine 12/28/2024 7:41 AM EDT Hypertension, essential Hyperlipidemia Senile arthritis Postsurgical hypothyroidism THYROID STIMULATING HORMONE Routine 12/28/2024 7:41 AM EDT Hypertension, essential Hyperlipidemia Senile arthritis Postsurgical hypothyroidism SEDIMENTATION RATE Routine 12/28/2024 7: 41 AM EDT Hypertension, essential Hyperlipidemia Senile arthritis Postsurgical hypothyroidism LDL CHOLESTEROL, DIRECT Routine 12/28/2024 7:41 AM EDT Hypertension, essential Hyperlipidemia Senile arthritis Postsurgical hypothyroidism COMPREHENSIVE METABOLIC PANEL Routine 12/28/2024 7:41 AM EDT Hypertension, essential Hyperlipidemia Senile arthritis Postsurgical hypothyroidism HEPATITIS C ANTIBODY Routine 03/02/2024 7:56 AM EST Anemia, unspecified Encounter for general adult medical examination with abnormal findings Hyperlipemia Blood glucose elevated Referral of patient without examination or treatment Senile arthritis Urinary frequency Fatigue 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 from Last 3 Months or Most Recently Relevant to Health Maintenance Results * Sedimentation rate (12/28/2024 7:41 AM EDT) Sed Rate 8 0 - 20 mm/hr LAB HEMETOLOGY METHOD 12/28/2024 8:44 AM EDT [facility] Blood Venous blood specimen / Unknown Venipuncture / Unknown 12/28/2024 7:41 AM EDT 12/28/2024 8:36 AM EDT us Robert Peck MD LAB BLOOD ORDERABLES Final Res ult Performing Organization Address [facility] Co de Phone Number [facility] [address] [place] [address], [place] [phone] * Uric acid (12/28/2024 7:41 AM EDT) [facility] Uric Acid 4.5 3.7 - 9.2 mg/dL LAB CHEMISTRY METHOD 12/28/2024 9:11 AM EDT [facility] Blood Venous blood specimen / Unknown Venipuncture / Unknown 12/28/2024 7:41 AM EDT 12/28/2024 8:34 AM EDT us Robert Peck MD LAB BLOOD ORDERABLES Final Res ult Performing Organization Address [facility] de Phone Number [facility] [address] [place] [address], [place] [phone] * Thyroid stimulating hormone (12/28/2024 7:41 AM EDT) [facility] TSH 1.35 0.40 - 4.00 mcIU/mL LAB CHEMISTRY METHOD 12/28/2024 9:54 AM EDT [facility] Blood Venous blood specimen / Unknown Venipuncture / Unknown 12/28/2024 7:41 AM EDT 12/28/2024 8:34 AM EDT us Robert Peck MD LAB BLOOD ORDERABLES Final Res ult Performing Organization Address City/[facility]/ZIP Co de Phone Number [facility] [address] [place] [address], [place] [phone] * LDL cholesterol, direct (12/28/2024 7:41 AM EDT) Pathologist [facility] LDL Direct 94 <=100 mg/dL LAB CHEMISTRY METHOD 12/28/2024 9:11 AM EDT [facility] Blood Venous blood specimen / Unknown Venipuncture / Unknown 12/28/2024 7:41 AM EDT 12/28/2024 8:34 AM EDT Robert Peck MD LAB BLOOD ORDERABLES Final Res ult Performing Organization Address [facility]/State/ZIP Co de Phone Number [facility] [address] [place] [address], [place] [phone] * (ABNORMAL) Comprehensive metabolic panel (12/28/2024 7:41 AM EDT) [facility] Sodium 141 133 - 145 mmol/L LAB CHEMISTRY METHOD 12/28/2024 9:11 AM [facility] Potassium 4.0 3.5 - 5.5 mmol/L LAB CHEMISTRY METHOD 12/28/2024 9:11 AM [facility] Chloride 105 96 - 110 mmol/L LAB CHEMISTRY METHOD 12/28/2024 9:11 AM [facility] CO2 28 21 - 32 mmol/L LAB CHEMISTRY METHOD 12/28/2024 9:11 AM [facility] Anion Gap 8 3 - 11 LAB CHEMISTRY METHOD 12/28/2024 9:11 AM [facility] Glucose 96 70 - 100 mg/dL LAB CHEMISTRY METHOD 12/28/2024 9:11 AM [facility] BUN 11 5 - 25 mg/dL LAB CHEMISTRY METHOD 12/28/2024 9:11 AM [facility] Creatinine 0.84 0.70 - 1.30 mg/dL LAB CHEMISTRY METHOD 12/28/2024 9:11 AM [facility] eGFR 96 >=60 mL/min/1. 73m2 LAB CHEMISTRY METHOD 12/28/2024 9:11 AM [facility] Comment:Calculation based on the Chronic Kidney Disease Epidemiology Collaboration (CKD-EPI) equation refit without adjustment for race. BUN/Creatinine Ratio 13.1 LAB CHEMISTRY METHOD 12/28/2024 9:11 AM [facility] Calcium 8.8 8.5 - 10.5 mg/dL LAB CHEMISTRY METHOD 12/28/2024 9:11 AM [facility] AST (SGOT) 22 10 - 42 unit/L LAB CHEMISTRY METHOD 12/28/2024 9:11 AM [facility] ALT (SGPT) 30 10 - 60 unit/L LAB CHEMISTRY METHOD 12/28/2024 9:11 AM [facility] Alkaline Phosphatase 96 42 - 121 unit/L LAB CHEMISTRY METHOD 12/28/2024 9:11 AM [facility] Total Protein 6.9 6.0 - 8.0 g/dL LAB CHEMISTRY METHOD 12/28/2024 9:11 AM [facility] Albumin 3.9 3.2 - 5.0 g/dL LAB CHEMISTRY METHOD 12/28/2024 9:11 AM [facility] Total Bilirubin 1.5(H) 0.0 - 1.4 mg/dL LAB CHEMISTRY METHOD 12/28/2024 9:11 AM [facility] Blood Venous blood specimen / Unknown Venipuncture / Unknown 12/28/2024 7:41 AM EDT 12/28/2024 8:34 AM EDT us Robert Peck MD LAB BLOOD ORDERABLES Final Res ult [facility] [address] [place] [address], [place] [phone] * Hepatitis C antibody (03/02/2024 7:56 AM EST) Hepatitis C Antibody Negative Negative LAB CHEMISTRY METHOD 03/02/2024 10:50 AM EST [facility] Blood Venous blood specimen / Unknown Venipuncture / Unknown 03/02/2024 7:56 AM EST 03/02/2024 9:13 AM EST us Robert Peck MD LAB BLOOD ORDERABLES Final Res ult [facility] [address] [place] [address], [place] [phone] from Last 3 Months or Most Recently Relevant to Health Maintenance Insurance [facility] Member Subscriber Plan / Payer (Ef fective 2022-Present) Name:BELLO MEADE Relation to Subscriber:Self Name:Bello Meade Payer ID:[id number] Type:Not on file Address: [address] [phone] [employer] [place] MEDICARE ADVANTAGE Care Teams Nursing Informatics Specialist Relationship Specialty Start Date End Date Robert Peck MD [address] [place] [phone] PCP - General Internal Medicine 12/19/23
--- OUTSIDE RECORDS SUMMARY | 2025-01-14 15:14 | XMS_ITS | Encounter Summary ---
Author Organization [facility] Address [address] [place] [address] Care Team Providers Care Marketing Account Executive Name Role Phone Robert Peck MD Primary Care Provider [phone] Encounter Details Date Type Department Care Team (Late Contact Info) Description 07/13/2024 Lab Requisition [facility] Lab [address] [facility] [place] [phone] Robert Peck MD [address] [place] [address] Hyperlipidemia, unspecified; Postprocedural hypothyroidism; Essential (primary) hypertension; [...] AM EST Office Visit Orthopedic Surgery - [place] 250 [address] [facility] [address] [place] [phone] Migue Kamara DPM [address] [place] [phone] documented as of this encounter Procedures Procedure [...] CBC auto differential (07/13/2024 10:08 AM EDT) [facility] WBC 7.1 4.8 - 10.8 K/mcL LAB HEMETOLOGY METHOD 07/13/2024 11:27 AM [facility] RBC 4.90 4.50 - 5.50 M/mcL LAB HEMETOLOGY METHOD 07/13/2024 11:27 AM [facility] Hemoglobin 14.6 13.5 - 17.5 g/dL LAB HEMETOLOGY METHOD 07/13/2024 11:27 AM [facility] Hematocrit 42.4 42.0 - 54.0 % LAB HEMETOLOGY METHOD 07/13/2024 11:27 AM [facility] MCV 86.0 79.0 - 98.0 FL LAB HEMETOLOGY METHOD 07/13/2024 11:27 AM [facility] MCH 29.6 27.0 - 32.0 pcg LAB HEMETOLOGY METHOD 07/13/2024 11:27 AM [facility] MCHC 34.4 32.0 - 37.0 g/dL LAB HEMETOLOGY METHOD 07/13/2024 11:27 AM [facility] RDW 13.1 11.0 - 15.0 % LAB HEMETOLOGY METHOD 07/13/2024 11:27 AM [facility] Platelets 238 130 - 400 K/mcL LAB HEMETOLOGY METHOD 07/13/2024 11:27 AM [facility] MPV 9.2 7.0 - 11.0 FL LAB HEMETOLOGY METHOD 07/13/2024 11:27 AM [facility] NRBC 0.0 <1.0 % LAB HEMETOLOGY METHOD 07/13/2024 11:27 AM [facility] NRBC Absolute 0.00 <0.10 K/mcL LAB HEMETOLOGY METHOD 07/13/2024 11:27 AM [facility] Neutrophils Relative 66.0 % LAB HEMETOLOGY METHOD 07/13/2024 11:27 AM [facility] Lymphocytes Relative 21.7 % LAB HEMETOLOGY METHOD 07/13/2024 11:27 AM [facility] Monocytes Relative 8.1 % LAB HEMETOLOGY METHOD 07/13/2024 11:27 AM [facility] Eosinophils Relative 3.1 % LAB HEMETOLOGY METHOD 07/13/2024 11:27 AM [facility] Basophils Relative 0.8 % LAB HEMETOLOGY METHOD 07/13/2024 11:27 AM [facility] Immature Granulocytes Relative 0.3 % LAB HEMETOLOGY METHOD 07/13/2024 11:27 AM [facility] Neutrophils Absolute 4.66 1.50 - 7.00 K/mcL LAB HEMETOLOGY METHOD 07/13/2024 11:27 AM [facility] Lymphocytes Absolute 1.53 1.00 - 5.00 K/mcL LAB HEMETOLOGY METHOD 07/13/2024 11:27 AM [facility] Monocytes Absolute 0.57 0.20 - 1.00 K/mcL LAB HEMETOLOGY METHOD 07/13/2024 11:27 AM EDT [facility] Eosinophils Absolute 0.22 0.00 - 0.50 K/[facility] LAB HEMETOLOGY METHOD 07/13/2024 11:27 AM EDT [facility] Basophils Absolute 0.06 0.00 - 0.20 K/[facility] LAB HEMETOLOGY METHOD 07/13/2024 11:27 AM EDT [facility] Immature Granulocytes Absolute 0.02 0.00 - 0.03 K/[facility] LAB HEMETOLOGY METHOD 07/13/2024 11:27 AM EDT [facility] Blood Venous blood specimen / Unknown 07/13/2024 10:08 AM EDT 07/13/2024 11:14 AM EDT us Robert Peck MD LAB BLOOD ORDERABLES Final Res ult [facility] [address] [place] [address], [place] [phone] * Sedimentation rate (07/13/2024 10:08 AM EDT) Sed Rate 16 0 - 20 mm/hr LAB HEMETOLOGY METHOD 07/13/2024 11:37 AM EDT [facility] Blood Venous blood specimen / Unknown 07/13/2024 10:08 AM EDT 07/13/2024 11:14 AM EDT Robert Peck MD LAB BLOOD ORDERABLES Final Res ult [facility] [address] [place] [address], [place] [phone] * (ABNORMAL) Comprehensive metabolic panel (07/13/2024 10:08 AM EDT) Sodium 139 133 - 145 mmol/L LAB CHEMISTRY METHOD 07/13/2024 12:44 PM [facility] Potassium 4.0 3.5 - 5.5 mmol/L LAB CHEMISTRY METHOD 07/13/2024 12:44 PM [facility] Chloride 107 96 - 110 mmol/L LAB CHEMISTRY METHOD 07/13/2024 12:44 PM [facility] CO2 27 21 - 32 mmol/L LAB CHEMISTRY METHOD 07/13/2024 12:44 PM [facility] Anion Gap 5 3 - 11 LAB CHEMISTRY METHOD 07/13/2024 12:44 PM [facility] Glucose 89 70 - 100 mg/dL LAB CHEMISTRY METHOD 07/13/2024 12:44 PM [facility] BUN 12 5 - 25 mg/dL LAB CHEMISTRY METHOD 07/13/2024 12:44 PM [facility] Creatinine 0.87 0.70 - 1.30 mg/dL LAB CHEMISTRY METHOD 07/13/2024 12:44 PM [facility] eGFR 95 >=60 mL/min/1. 73m2 LAB CHEMISTRY METHOD 07/13/2024 12:44 PM [facility] Comment:Calculation based on the Chronic Kidney Disease Epidemiology Collaboration (CKD-EPI) equation refit without adjustment for race. BUN/Creatinine Ratio 13.8 LAB CHEMISTRY METHOD 07/13/2024 12:44 PM [facility] Calcium 9.3 8.5 - 10.5 mg/dL LAB CHEMISTRY METHOD 07/13/2024 12:44 PM [facility] AST (SGOT) 24 10 - 42 unit/L LAB CHEMISTRY METHOD 07/13/2024 12:44 PM [facility] ALT (SGPT) 32 10 - 60 unit/L LAB CHEMISTRY METHOD 07/13/2024 12:44 PM [facility] Alkaline Phosphatase 91 42 - 121 unit/L LAB CHEMISTRY METHOD 07/13/2024 12:44 PM EDT [facility] Total Protein 7.5 6.0 - 8.0 g/dL LAB CHEMISTRY METHOD 07/13/2024 12:44 PM EDT [facility] Albumin 3.9 3.2 - 5.0 g/dL LAB CHEMISTRY METHOD 07/13/2024 12:44 PM EDT [facility] Total Bilirubin 1.8(H) 0.0 - 1.4 mg/dL LAB CHEMISTRY METHOD 07/13/2024 12:44 PM EDT [facility] Blood Venous blood specimen / Unknown 07/13/2024 10:08 AM EDT 07/13/2024 11:11 AM EDT Robert Pekc MD LAB BLOOD ORDERABLES Final Res ult Performing Organization Address [facility]/ZIP Co de Phone Number [facility] [address] [place] [address], [place] [phone] * Thyroid stimulating hormone (07/13/2024 10:08 AM EDT) Pathologist [facility] TSH 1.15 0.40 - 4.00 mcIU/mL LAB CHEMISTRY METHOD 07/13/2024 1:48 PM EDT [facility] Blood Venous blood specimen / Unknown 07/13/2024 10:08 AM EDT 07/13/2024 11:11 AM EDT Robert Peck MD LAB BLOOD ORDERABLES Final Res ult [facility] [address] [place] [address], [place] [phone] * (ABNORMAL) LDL cholesterol, direct (07/13/2024 10:08 AM EDT) LDL Direct 105(H) <=100 mg/dL LAB CHEMISTRY METHOD 07/13/2024 12:44 PM EDT [facility] Blood Venous blood specimen / Unknown 07/13/2024 10:08 AM EDT 07/13/2024 11:11 AM EDT us Robert Peck MD LAB BLOOD ORDERABLES Final Res ult [facility] [address] [place] [address], documented in this encounter Visit Diagnoses Diagnosis Hyperlipidemia, unspecified Postprocedural hypothyroidism Postsurgical hypothyroidism Essential (primary) hypertension Unspecified essential hypertension Mild intermittent asthma, uncomplicated Unspecified osteoarthritis, unspecified site documented in this encounter Care Teams Marketing Account Executive Relationship Specialty Start Date End Date Robert Peck MD [address] [place] [address] PCP - General Internal Medicine 12/19/23 documented as of this encounter
--- OUTSIDE RECORDS SUMMARY | 2025-01-14 15:15 | XMS_ITS | Encounter Summary ---
Author Organization [facility] Address [address] [place] [address] Care Team Providers Care Free Lance Artist Name Role Phone Robert Peck MD Primary Care Provider [phone] Encounter Details Date Type Department Care Team (Late Contact Info) Description 11/12/2024 Lab Requisition [facility] - Main Lab 299 [facility] [place] [phone] Robert Peck MD [address] [place] [address] Hyperlipidemia, unspecified; Encounter for general adult medical [...] AM EST Office Visit Orthopedic Surgery - [place] [address] [facility] [address] [place] [address] Migue Kamara DPM [address] [place] [phone] Scheduled Orders Name Type Priority Associated Diagnoses [...] site documented in this encounter Care Teams Free Lance Artist Relationship Specialty Start Date End Date Robert Peck MD [address] [place] [phone] PCP - General Internal Medicine 12/19/23 documented as of this encounter
== END 2025-01-14 12:58 | disposition home or self-care (01) ==
LOC: HO.HGI 11:49
PROVIDERS: PCP Internal Medicine; Visit Provider Internal Medicine Gastroenterology
DX: K50.90 Crohn's disease, unspecified, without complications (principal)
CPT/HCPCS: 99213